=== PATIENT | male | born 1945 | race American Indian/Alaskan Native ===

== ENCOUNTER 2016-09-16 18:34 | Inpatient (IN) | payer MEDICARE ==
[2016-09-16 19:45] LABS: Basophils % (Auto) 0.9 % (0.0-1.8); Eosinophils % (Auto) 2.5 % (0.0-4.3); Hematocrit 39.3 % (35.5-45.6); Hemoglobin 13.4 gm/dl (11.8-15.2); Mean Corpuscular HGB Conc 34 % (32-34); Mean Corpuscular Hemoglobin 30 pg (28-32); Mean Corpuscular Volume 87 fl (84-94); Platelet Count 214 K/mm3 (140-440); Red Blood Count 4.53 M/mm3 (3.65-5.03); Red Cell Distribution Width 15.9 % (13.2-15.2)
[2016-09-16 20:00] LABS: Anion Gap 20 mmol/L; Blood Urea Nitrogen 15 mg/dL (9-20); Calcium 9.2 mg/dL (8.4-10.2); Carbon Dioxide 25 mmol/L (22-30); Chloride 102.6 mmol/L (98-107); Glucose 126 mg/dL (75-100); Potassium 3.3 mmol/L (3.6-5.0); Sodium 144 mmol/L (137-145)
--- NOTE | 2016-09-16 20:11 | Emergency Department Report ---
HPI - General Chief Complaint: Extremity Problem,Nontraumatic Time Seen by Provider: 09/16/16 19:31 - HPI HPI: Patient is a 71-year-old black male who states that this morning around 10 AM he started having some left-sided weakness, pain. Patient is able to lift up his left arm but stated that it is difficult to grab objects. Patient with a history of high blood pressure, complains also of a headache, pressure like, ED Past Medical Hx - Past Medical History Previous Medical History?: Yes Hx Hypertension: Yes Hx Heart Attack/AMI: No Hx Congestive Heart Failure: Yes Hx Diabetes: No Hx Deep Vein Thrombosis: No - Surgical History Past Surgical History?: Yes Hx Coronary Stent: No Hx Pacemaker: Yes Hx Internal Defibrillator: Yes Additional Surgical History: denies - Family History Family history: hypertension - Social History Smoking Status: Former Smoker Substance Use Type: None - Medications Home Medications: Home Medications Medication Instructions Recorded Confirmed Last Taken Type Aspirin [Aspirin BABY CHEW TAB] 81 mg PO QDAY 12/09/15 09/16/16 12/08/15 History Bumetanide [Bumex] 1 mg PO TID 12/09/15 09/16/16 12/08/15 History Carvedilol [Coreg] 25 mg PO BID 12/09/15 09/16/16 12/08/15 History ISOSORBIDE MONOnitrate [Imdur ER] 60 mg PO QDAY 12/09/15 09/16/16 12/08/15 History Ondansetron [Zofran TAB] 4 mg PO Q8HR PRN #14 tablet 12/09/15 09/16/16 Unknown Rx Pravastatin Sodium [Pravastatin] 20 mg PO QHS 12/09/15 09/16/16 12/08/15 History Tamsulosin [Flomax] 0.4 mg PO QDAY 12/09/15 09/16/16 12/08/15 History amLODIPine [Norvasc] 5 mg PO DAILY 12/09/15 09/16/16 12/08/15 History hydrALAZINE [Apresoline TAB] 100 mg PO TID 12/09/15 09/16/16 12/08/15 History ED Review of Systems ROS: Stated complaint: FALL/LEFT ARM WEAKNESS Other details as noted in HPI Comment: All other systems reviewed and negative Constitutional: no symptoms reported Neurological: weakness Physical Exam - Physical Exam Vital Signs: Vital Signs 09/16/16 09/16/16 19:05 19:31 Temperature 98 F Pulse Rate 70 Respiratory 18 Rate Blood Pressure 172/84 [Right] O2 Sat by Pulse 98 Oximetry Physical Exam: General Adult Exam GENERAL APPEARANCE: Well developed, well nourished, alert and cooperative, and appears to be in no acute distress. HEAD: normocephalic. EYES: PERRL, EOMI. Fundi normal, vision is grossly intact. EARS: External auditory canals and tympanic membranes clear, hearing grossly intact. NOSE: No nasal discharge. THROAT: Oral cavity and pharynx normal. No inflammation, swelling, exudate, or lesions. Teeth and gingiva in good general condition. NECK: Neck supple, non-tender without lymphadenopathy, masses or thyromegaly. CARDIAC: Normal S1 and S2. No S3, S4 or murmurs. Rhythm is regular. There is no peripheral edema, cyanosis or pallor. Extremities are warm and well perfused. Capillary refill is less than 2 seconds. No carotid bruits. LUNGS: Clear to auscultation and percussion without rales, rhonchi, wheezing or diminished breath sounds. ABDOMEN: Positive bowel sounds. Soft, nondistended, nontender. No guarding or rebound. No masses. MUSKULOSKELETAL: Adequately aligned spine. ROM intact spine and extremities. No joint erythema or tenderness. Normal muscular development. Normal gait. BACK: Examination of the spine reveals normal gait and posture, no spinal deformity, symmetry of spinal muscles, without tenderness, decreased range of motion or muscular spasm. EXTREMITIES: No significant deformity or joint abnormality. No edema. Peripheral pulses intact. No varicosities. LOWER EXTREMITY: Examination of both feet reveals all toes to be normal in size and symmetry, normal range of motion, normal sensation with distal capillary filling of less than 2 seconds without tenderness, swelling, discoloration, nodules, weakness or deformity; examination of both ankles, knees, legs, and hips reveals normal range of motion, normal sensation without tenderness, swelling, discoloration, crepitus, weakness or deformity. NEUROLOGICAL: CN II-XII intact. left sided 3/5 strength PSYCHIATRIC: The mental examination revealed the patient was oriented to person , place, and time. The patient was able to demonstrate good judgement and reason , without hallucinations, abnormal affect or abnormal behaviors during the examination. Patient is not suicidal. ED Course Vital Signs 09/16/16 09/16/16 19:05 19:31 Temperature 98 F Pulse Rate 70 Respiratory 18 Rate Blood Pressure 172/84 [Right] O2 Sat by Pulse 98 Oximetry ED Medical Decision Making - Lab Data Result diagrams: 09/16/16 19:27 09/16/16 19:27 Critical care attestation.: If time is entered above; I have spent that time in minutes in the direct care of this critically ill patient, excluding procedure time. ED Disposition Clinical Impression: Left-sided weakness Disposition: DC-09 OP ADMIT IP TO THIS HOSP Is pt being admited?: Yes Does the pt Need Aspirin: Yes Condition: Stable Referrals: PRIMARY CARE, [Primary Care Provider] - 3-5 Days
[2016-09-16] MEDS ORDERED: MORPHINE ONE (20:12)
--- NOTE | 2016-09-16 20:12 | Cat Scan Report ---
FINAL REPORT EXAM: CT HEAD/BRAIN WO CON HISTORY: left sided weakness TECHNIQUE: Noncontrast CT axial images of the brain. PRIORS: None. FINDINGS: No parenchymal mass, mass effect, hemorrhage, midline shift or hydrocephalus. No evidence of acute cortical infarct. No abnormal, extra-axial fluid or air collection. Mild, patchy low density in the periventricular and subcortical white matter, primarily in the right frontal region is nonspecific, but may relate to chronic small vessel ischemic change. Probable tiny, old lacunar infarct changes in the right basal ganglia. Age-related volume loss. Osseous calvarium grossly intact. IMPRESSION: 1. Chronic ischemic and atrophic changes suspected. Please note that MRI is a far more sensitive modality in the evaluation of acute cerebral ischemia, and followup may be warranted. 2. No other acute intracranial findings.
[2016-09-16] MEDS ORDERED: ZOFRAN ONE (20:13)
[2016-09-16] MEDS ORDERED: ZOFRAN IV ONE (20:15)
[2016-09-16] MEDS ORDERED: MORPHINE IV ONE (20:15)
[2016-09-17] MEDS ORDERED: ASPIRIN ONE (01:34)
[2016-09-17] MEDS: ASPIRIN PO SCH ×2 (01:41→10:55)
--- NOTE | 2016-09-17 03:00 | Admit Criteria Form ---
Admission Criteria Documentation: NEUROLOGY GRG Clinical Indications for Admission to Inpatient Care (Place ' X' for any and all applicable criteria): Hospital admission is needed for appropriate care of the patient because of 1 or more of the following: [ ]I. Encephalitis [ ]II. Severe PATIENT SERVICES COORDINATOR infections indicated by 1 or more of the following(1)(2)(3) : [ ]a) Intracranial abscess [ ]b) Spinal abscess or myelitis [ ]c) Tuberculous or other nonbacterial, nonviral PATIENT SERVICES COORDINATOR infection(8) [ ]III. Vasculitis and 1 or more of the following(14)(15): []a) Altered mental status that is severe or persistent or other acute neurologic change []b) Psychosis []c) Seizure [ ]IV. Status epilepticus or repetitive seizures not controlled with emergent treatment [A] (7)(8) [ ]V. Altered mental status that is severe or persistent [ ]. Transient alteration in consciousness with high-risk etiology; examples include (12)(13): [ ]a) Cardiovascular source [ ]b) Cataplexy [ ]VII. Cerebral aneurysm requiring ANY ONE of the following(14): [ ]a) IV antihypertensives or vasoactive agents [ ]b) Sedation and analgesia for suspected leak [ ]c) Need for external ventricular drainage and cerebral perfusion pressure monitoring [ ]d) Emergent evaluation to determine need for surgical clipping or endovascular coiling by interventional radiology. If surgery is required ( Also use Craniotomy, Supratentorial, for Surgery of Bleeding Intracranial Aneurysm (for bleeding aneurysm) or Craniotomy, Supratentorial (for nonbleeding aneurysm) as appropriate. [X ]VIII. New-onset severe neurologic symptom requiring inpatient care indicated by ANY ONE of the following: [ ]a) Aphasia(15) [ ]b) Weakness (grade 3 or less) [ ]c) Paralysis (eg, hemiplegia) [ ]d) Spasticity(16) [ ]e) Dystonia [ ]e) Ataxia(17) [ ]f) Amnesia(18) [ ]g) Involuntary movements(19) [ ]h) Vertigo [ ] Visual loss [X ]i) Other severe neurologic finding (eg, papilledema, mass effect on imaging, myoclonus not treatable at alternative level of care (eg, observation care) [ ]IX. Guillain-Brimfield syndrome(20) [ ]X. Myasthenia gravis crisis or inpatient monitoring need as indicated by 1 or more of the following(21): [ ]a) Intensive treatment (eg, course of plasmapheresis) with inadequate outpatient situation to monitor patients status [ ]b) Inadequate airway protection [ ]c) Respiratory insufficiency requiring intubation or inpatient. monitoring [ ]d) Progressive dysphagia with failure to thrive [ ]XI. Multiple sclerosis or other acute demyelinating disease requiring inpatient care as indicated by 1 or more of the following (22)(23): [ ]a) Acute severe deterioration requiring inpatient treatment (eg, IV steroids, plasmapheresis, close observation) [ ]b) Acute complication requiring inpatient care (eg, sepsis, severe decubitus, aspiration) [ ]XII.Parkinson disease requiring inpatient care (Also use Optimal Recovery Care Criteria or General Recovery Criteria as appropriate) indicated by 1 or more of the following(25): [ ]a) Infection (eg, aspiration pneumonia) not treatable at alternative level of care [ ]b Dehydration that is severe or persistent [ ]c) Life-threatening agitation or psychotic behavior not treatable on emergency, observation care, or alternative level (eg, residential) basis [ ]d) Severe medication withdrawal effects (eg, freezing, neuroleptic malignant syndrome) not responsive to emergency and observation care treatment ( as appropriate) [ ]e) Other severe manifestation not treatable at alternative level of care [ ]XII. Amyotrophic lateral sclerosis with inpatient care needs as indicated by ANY ONE of the following(26): [ ]a) Acute complications (eg, aspiration pneumonia, sepsis ) requiring inpatient care ( see other optimal Recovery Guideline as appropriate) [ ]b) Dehydration that is severe persistent AND artificial support desired [ ]c) Inadequate airway protection AND artificial support desired [ ]d) Severe ventilatory insufficiency AND artificial support desired [ ]XIII. Myasthenia gravis crisis or inpatient monitoring need as indicated by 1 or more of the following(21): [] a) Inadequate airway protection []b) Respiratory insufficiency requiring intubation or inpatient monitoring []c) Progressive dysphagia with failure to thrive []d) Intensive treatment (e.g., course of plasmapheresis) with inadequate outpatient situation to monitor patients status [ ]XIV. Multiple sclerosis or other acute demyelinating disease requiring inpatient care indicated by 1 or more of the following[C](36)(43)(44)(45)(46): []a) Acute severe deterioration requiring inpatient treatment (eg, IV steroids, plasmapheresis, close observation) []b) Acute complication requiring inpatient care (eg, sepsis, severe decubitus, aspiration) [ ]XV. Intracranial hypertension (e.g., pseudotumor cerebri) requiring inpatient care (e.g., acute visual loss, inadequate oral intake) (47)(48)(49) [ ]XVI. Parkinson disease requiring inpatient care (Also use Optimal Recovery Care Criteria or General Recovery Criteria as appropriate) indicated by 1 or more of the following(25): [] a) Infection (e.g., aspiration pneumonia) not treatable at alternative level of care []b) Volume depletion not responsive to emergency and observation care treatment (as appropriate) []c) Life-threatening agitation or psychotic behavior not treatable on emergency, observation care, or alternative level (e.g., residential) basis []d) Severe medication withdrawal effects (e.g., freezing, neuroleptic malignant syndrome) not responsive to emergency and observation care treatment (as appropriate) []e) Other severe manifestation not treatable at alternative level of care [ ]XVII. Amyotrophic lateral sclerosis with inpatient care needs as indicated by1 or more of the following(42): []a) Acute complications (eg, aspiration pneumonia, sepsis) requiring inpatient care (see other Optimal Recovery Guideline or General Recovery Guideline as appropriate) []b) Dehydration that is severe or persistent AND artificial support desired []c) Inadequate airway protection AND artificial support desired []d) Severe ventilatory insufficiency AND artificial support desired [ ]XVIII. Severe myopathy, neuropathy, or other neuromuscular disease indicated by 1 or more of the following(42)(52)(53)(54): []a ) New-onset severe diffuse weakness (eg, strength 3/5 or less) []b) Severe dysphagia []c) Dyspnea at rest or with minimal exertion (new) []d) Inadequate airway protection []e) Inadequate ventilation indicated by 1 or more of the following : i) Partial pressure of carbon dioxide greater than 44 mm Hg ( 5.9 kPa) (new) ii) Reduced peak expiratory flow rate (new) iii) Vital capacity less than 50% of predicted (less than 15 mL/kg) iv) Peak inspiratory force less negative than -30 cm H2O (- 2942 Pa) [ ]XVII.Complications of congenital or degenerative disease (eg, infection, seizures, dehydration, injury) not responsive to emergency and observation care treatment (as appropriate ) [C](16)(29)(30) [ ]XVIII.Suspected or confirmed nerve or muscle toxic injury, including ANY ONE of the following: [ ]a) Rhabdomyolysis(31) i) Acute renal failure ii) Dehydration that is severe or persistent iii) Altered mental status that is severe or persistent iv) Electrolyte abnormality that remains after emergency or observation level care ( as appropriate) [ ]b) Botulism(32) [ ]c) Other severe toxin-induced sign or symptom [ ]XIX. Neurologic trauma requiring inpatient treatment (medical) indicated by ANY ONE of the following(33)(34): [ ]a) Vital signs or neurologic signs more frequently than every 4 hours [ ]b) Hyperosmolar therapy [ ]c) Respiratory monitoring [ ]d) Intracranial pressure monitoring and treatment [ ]e) Stabilization and immobilization device placement (eg, braces, body jacket) [ ]f) Intubation & mechanical ventilation for airway protection or therapeutic hyperventilation [ ]g) Other treatment or monitoring needed that requires inpatient level of care [ ]XX.Complications of neurologic devices (eg, ventricular shunt, neurostimulator) requiring 1 or more of the following(35)(36): [ ]a) IV antibiotics with monitoring while awaiting culture results [ ]b) Monitoring for hydrocephalus [ ]XXI. Neurology condition symptom, or finding for which emergency and observation care have failed or are not considered appropriate. See General Criteria: Observation Care ISC, General Admission Criteria GRG, or Pediatric General Admission Criteria GRG guideline as appropriate. The original [facility] [employer] content created by [facility] [employer] has been revised. The portions of the content which have been revised are identified through the use of italic text or in bold, and [facility] has neither reviewed nor approved the modified material. All other unmodified content is copyright [facility] Please see references footnoted in the original [facility] edition 2016 Admission Criteria Met: Yes
[2016-09-17] MEDS ORDERED: APRESOLINE IV ONE (05:35)
--- NOTE | 2016-09-17 12:45 | History and Physical Report ---
History of Present Illness Date of admission: 09/17/16 01:05 Chief complaint: I feel weak, and i cant talk funny History of present illness: 71 YO Male with CHF, HTN, MO presents to ED for evaluation. Pt states that he began experiencing weakness to his left side at 10:00 hrs on the day of presentation. Pt unable to lift and hold a cup with his left hand/arm as well as a headache with pain rated at 8/10. Pt symptoms have worsened over the past 6 hours. Pt denies fever, chills, CP, palpitations, NVD, syncope, vertigo, trauma, BRBPR, productive cough, skin rash or recent ill contacts. Past History Past Medical History: heart failure, hypertension, other (obesity) Past Surgical History: Other (ICD/Pacemaker) Social history: single. denies: smoking, alcohol abuse, prescription drug abuse Family history: hypertension Medications and Allergies Allergies Allergy/AdvReac Type Severity Reaction Status Date / Time No Known Allergies Allergy Unverified 06/29/13 10:35 Home Medications Medication Instructions Recorded Confirmed Last Taken Type Aspirin [Aspirin BABY CHEW TAB] 81 mg PO QDAY 12/09/15 09/16/16 12/08/15 History Bumetanide [Bumex] 1 mg PO TID 12/09/15 09/16/16 12/08/15 History Carvedilol [Coreg] 25 mg PO BID 12/09/15 09/16/16 12/08/15 History ISOSORBIDE MONOnitrate [Imdur ER] 60 mg PO QDAY 12/09/15 09/16/16 12/08/15 History Ondansetron [Zofran TAB] 4 mg PO Q8HR PRN #14 tablet 12/09/15 09/16/16 Unknown Rx Pravastatin Sodium [Pravastatin] 20 mg PO QHS 12/09/15 09/16/16 12/08/15 History Tamsulosin [Flomax] 0.4 mg PO QDAY 12/09/15 09/16/16 12/08/15 History amLODIPine [Norvasc] 5 mg PO DAILY 12/09/15 09/16/16 12/08/15 History hydrALAZINE [Apresoline TAB] 100 mg PO TID 12/09/15 09/16/16 12/08/15 History Active Meds: Active Medications Aspirin (Aspirin) 325 mg PO QDAY DOMO Last Admin: 09/17/16 10:55 Dose: 325 mg Review of Systems All systems: negative Constitutional: no weight loss Ears, nose, mouth and throat: no ear pain Cardiovascular: no chest pain Respiratory: no cough Gastrointestinal: no abdominal pain Genitourinary Male: no dysuria Rectal: no pain Musculoskeletal: no neck stiffness Integumentary: no rash Neurological: parathesias, headaches, gait dysfunction, no head injury Psychiatric: no anxiety Endocrine: no cold intolerance Hematologic/Lymphatic: no easy bruising Allergic/Immunologic: no urticaria Exam - Constitutional Vitals: Temp Pulse Resp BP Pulse Ox 98.5 F 73 20 151/88 94 09/17/16 12:00 09/17/16 12:00 09/17/16 12:00 09/17/16 12:00 09/17/16 12:00 General appearance: Present: mild distress - EENT Eyes: Present: PERRL ENT: hearing intact, clear oral mucosa - Neck Neck: Present: supple, normal ROM - Respiratory Respiratory effort: normal Respiratory: bilateral: CTA - Cardiovascular Heart Sounds: Present: S1 & S2. Absent: rub, click - Extremities Extremities: pulses symmetrical, No edema Peripheral Pulses: within normal limits - Abdominal General gastrointestinal: Present: soft, non-tender, non-distended, normal bowel sounds Male genitourinary: Present: normal - Integumentary Integumentary: Present: clear, warm, dry - Musculoskeletal Musculoskeletal: left sided weakness - Psychiatric Psychiatric: appropriate mood/affect, intact judgment & insight - Neurologic Neurologic: focal deficits, no moves all extremities, no gait normal Results - Labs CBC & Chem 7: 09/16/16 19:27 09/16/16 19:27 Assessment and Plan - Patient Problems (1) CVA (cerebral vascular accident) Current Visit: Yes Status: Acute Qualifiers: CVA mechanism: C Precerebral and cerebral artery: middle cerebral artery Laterality of affected vessel: right Plan to address problem: Stroke Protocol: CT head, MRI/MRA brain, echo, carotid doppler, PT/OT/Speech evaluation, antiplatelet therapy. (2) Accelerated hypertension Current Visit: Yes Status: Acute Plan to address problem: Monitor BP q shift, permissive hypertension. goal systolic between 170-190 overnight. (3) Acute on chronic diastolic heart failure Current Visit: No Status: Acute Plan to address problem: fluid restriction, monitor uop q shift to attain negative fluid balance, afterload reduction, telemetry monitoring, medical management. (4) DVT prophylaxis Current Visit: No Status: Acute
[2016-09-17] MEDS ORDERED: SODIUM CHLORIDE FLUSH SYRINGE 10 ML IV PRN (12:46)
[2016-09-17] MEDS: ZOCOR PO SCH (21:24)
[2016-09-18] MEDS: MORPHINE IV PRN ×2 (03:33→14:20)
[2016-09-18] MEDS: ASPIRIN PO SCH (10:18)
--- NOTE | 2016-09-18 11:10 | Progress Note ---
Assessment and Plan Assessment and plan: --Acute CVA ischemic/left hemiparesis Aspirin and statin, physical therapy occupational therapy rehabilitation speech therapy Not a candidate for TPA --Malignant hypertension; Moderate control, permissive hypertension per stroke protocol, closely monitor --Dyslipidemia; continue statin --Acute on chronic diastolic congestive heart failure Continue current anti-failure medications, closely monitor input output Follow echocardiogram for left ventricular function ejection fraction --DVT prophylaxis; with Lovenox --DC planning per case management; possible subacute rehabilitation when medically stable History Interval history: Patient seen and evaluated in his room medical records reviewed Complaints of left upper extremity swelling and pain Admitted with acute CVA and workup is in progress Unable to get MRI due to permanent pacemaker, or tobacco oriented 3 not in acute distress Hospitalist Physical - Constitutional Vitals: Temp Pulse Resp BP Pulse Ox 98.1 F 73 20 185/95 97 09/18/16 08:00 09/18/16 08:00 09/18/16 08:00 09/18/16 08:00 09/18/16 08:00 General appearance: Present: no acute distress, obese - EENT Eyes: Present: PERRL, EOM intact - Neck Neck: Present: supple, normal ROM - Respiratory Respiratory effort: normal Respiratory: bilateral: diminished, negative: rales, rhonchi, wheezing - Cardiovascular Rhythm: regular Heart Sounds: Present: S1 & S2 - Extremities Extremities: no ischemia, No edema, abnormal (swelling left upper extremity mild tenderness) - Abdominal General gastrointestinal: soft, non-tender, non-distended, normal bowel sounds - Integumentary Integumentary: Present: clear, warm - Psychiatric Psychiatric: appropriate mood/affect, cooperative - Neurologic Neurologic: other (left-sided hemiparesis) Results - Labs CBC & Chem 7: 09/16/16 19:27 09/19/16 06:59 Labs: Laboratory Last Values WBC 8.0 K/mm3 (4.5-11.0) 09/16/16 19:27 RBC 4.53 M/mm3 (3.65-5.03) 09/16/16 19:27 Hgb 13.4 gm/dl (11.8-15.2) 09/16/16 19:27 Hct 39.3 % (35.5-45.6) 09/16/16 19:27 MCV 87 fl (84-94) 09/16/16 19:27 MCH 30 pg (28-32) 09/16/16 19:27 MCHC 34 % (32-34) 09/16/16 19:27 RDW 15.9 % (13.2-15.2) H 09/16/16 19:27 Plt Count 214 K/mm3 (140-440) 09/16/16 19:27 Lymph % (Auto) 12.9 % (13.4-35.0) L 09/16/16 19:27 [place] % (Auto) 7.7 % (0.0-7.3) H 09/16/16 19:27 Eos % (Auto) 2.5 % (0.0-4.3) 09/16/16 19:27 Baso % (Auto) 0.9 % (0.0-1.8) 09/16/16 19:27 Lymph # 1.0 K/mm3 (1.2-5.4) L 09/16/16 19:27 [place] # 0.6 K/mm3 (0.0-0.8) 09/16/16 19:27 Eos # 0.2 K/mm3 (0.0-0.4) 09/16/16 19:27 Baso # 0.1 K/mm3 (0.0-0.1) 09/16/16 19:27 Seg Neutrophils % 76.0 % (40.0-70.0) H 09/16/16 19:27 Seg Neutrophils # 6.1 K/mm3 (1.8-7.7) 09/16/16 19:27 Sodium 144 mmol/L (137-145) 09/16/16 19:27 Potassium 3.3 mmol/L (3.6-5.0) L 09/16/16 19:27 Chloride 102.6 mmol/L (98-107) 09/16/16 19:27 Carbon Dioxide 25 mmol/L (22-30) 09/16/16 19:27 Anion Gap 20 mmol/L 09/16/16 19:27 BUN 15 mg/dL (9-20) 09/16/16 19:27 Creatinine 1.0 mg/dL (0.8-1.5) 09/16/16 19:27 Estimated GFR > 60 ml/min 09/16/16 19:27 BUN/Creatinine Ratio 15.00 % 09/16/16 19:27 Glucose 126 mg/dL (75-100) H 09/16/16 19:27 Calcium 9.2 mg/dL (8.4-10.2) 09/16/16 19:27 Troponin T < 0.010 ng/mL (0.00-0.029) 09/17/16 00:30 Triglycerides 50 mg/dL (2-149) 09/18/16 06:21 Cholesterol 148 mg/dL (50-199) 09/18/16 06:21 LDL Cholesterol Direct 103 mg/dL (50-130) 09/18/16 06:21 HDL Cholesterol 35 mg/dL (40-59) L 09/18/16 06:21 Cholesterol/HDL Ratio 4.22 % 09/18/16 06:21
[2016-09-18] MEDS: FLOMAX PO SCH (18:17)
[2016-09-18] MEDS: APRESOLINE PO SCH (20:20)
[2016-09-18] MEDS: BUMEX PO SCH (20:20)
[2016-09-18] MEDS: COREG PO SCH (21:33)
[2016-09-18] MEDS: ZOCOR PO SCH (21:34)
[2016-09-18] MEDS: TYLENOL PO PRN (22:43)
[2016-09-19] MEDS: MORPHINE IV PRN (05:08)
[2016-09-19 07:59] LABS: Anion Gap 19 mmol/L; BUN/Creatinine Ratio 11.53; Blood Urea Nitrogen 15 mg/dL (9-20); Calcium 8.5 mg/dL (8.4-10.2); Carbon Dioxide 26 mmol/L (22-30); Chloride 100.4 mmol/L (98-107); Glucose 118 mg/dL (75-100); Potassium 3.2 mmol/L (3.6-5.0); Sodium 142 mmol/L (137-145)
--- NOTE | 2016-09-19 08:47 | XRay Report ---
PORTABLE CHEST INDICATION: Elevated temperature. COMPARISON: 12/09/2015 FINDINGS: Portable, frontal chest radiograph demonstrate stable cardiomediastinal silhouette/mild cardiomegaly and left sided pacemaker with dual chamber leads. Poorer inspiration with slightly crowded lung markings. No pleural effusions or CHF. EKG leads. Stable thoracic spondylosis. CONCLUSION: No significant interval change, as described. Thank you for the opportunity to participate in this patient's care.
[2016-09-19] MEDS: FLOMAX PO SCH (09:51)
[2016-09-19] MEDS: APRESOLINE PO SCH ×3 (09:51→20:30)
[2016-09-19] MEDS: ASPIRIN PO SCH (09:51)
[2016-09-19] MEDS: BUMEX PO SCH ×3 (09:51→20:30)
[2016-09-19] MEDS: IMDUR PO SCH (09:52)
[2016-09-19] MEDS: COREG PO SCH ×2 (09:52→22:44)
[2016-09-19] MEDS: NORVASC PO SCH (09:53)
[2016-09-19] MEDS: TYLENOL PO PRN (10:02)
--- NOTE | 2016-09-19 10:03 | Progress Note ---
Assessment and Plan Assessment and plan: --Hypokalemia; replenishment protocol and monitor levels --Acute CVA ischemic/left hemiparesis Aspirin and statin, physical therapy occupational therapy rehabilitation speech therapy Not a candidate for TPA, Physical therapy occupational therapy, rehabilitation, speech therapy Unable to get MRI secondary to pacemaker, pending neurology consultation --Malignant hypertension; Moderate control, permissive hypertension per stroke protocol, closely monitor --Dyslipidemia; continue statin --Acute on chronic diastolic congestive heart failure Continue current anti-failure medications, closely monitor input output --DVT prophylaxis; with Lovenox --DC planning per case management; possible subacute rehabilitation versus home with home health when medically stable Plan of care discussed with the patient, nurse and the case management History Interval history: Patient seen and evaluated this morning medical records reviewed No new events reported by the nursing staff Patient feels slightly better, alert awake oriented 3 not in acute distress Hospitalist Physical - Constitutional Vitals: Temp Pulse Resp BP Pulse Ox 98.9 F 70 22 178/88 99 09/19/16 04:30 09/19/16 09:53 09/19/16 05:08 09/19/16 09:53 09/19/16 04:30 General appearance: Present: no acute distress, well-nourished, obese (morbidly obese) - EENT Eyes: Present: PERRL, EOM intact - Neck Neck: Present: supple, normal ROM - Respiratory Respiratory effort: normal - Cardiovascular Rhythm: regular Heart Sounds: Present: S1 & S2 - Extremities Extremities: no ischemia, No edema Peripheral Pulses: within normal limits - Abdominal General gastrointestinal: soft, non-tender, non-distended, normal bowel sounds - Integumentary Integumentary: Present: clear, warm - Psychiatric Psychiatric: appropriate mood/affect, cooperative - Neurologic Neurologic: other (left-sided hemiparesis) Results - Labs CBC & Chem 7: 09/16/16 19:27 09/19/16 06:59 Labs: Laboratory Last Values WBC 8.0 K/mm3 (4.5-11.0) 09/16/16 19:27 RBC 4.53 M/mm3 (3.65-5.03) 09/16/16 19:27 Hgb 13.4 gm/dl (11.8-15.2) 09/16/16 19:27 Hct 39.3 % (35.5-45.6) 09/16/16 19:27 MCV 87 fl (84-94) 09/16/16 19: MCH 30 pg (28-32) 09/16/16 19:27 MCHC 34 % (32-34) 09/16/16 19:27 RDW 15.9 % (13.2-15.2) H 09/16/16 19:27 Plt Count 214 K/mm3 (140-440) 09/16/16 19:27 Lymph % (Auto) 12.9 % (13.4-35.0) L 09/16/16 19:27 [place] % (Auto) 7.7 % (0.0-7.3) H 09/16/16 19:27 Eos % (Auto) 2.5 % (0.0-4.3) 09/16/16 19:27 Baso % (Auto) 0.9 % (0.0-1.8) 09/16/16 19:27 Lymph # 1.0 K/mm3 (1.2-5.4) L 09/16/16 19:27 [place] # 0.6 K/mm3 (0.0-0.8) 09/16/16 19:27 Eos # 0.2 K/mm3 (0.0-0.4) 09/16/16 19:27 Baso # 0.1 K/mm3 (0.0-0.1) 09/16/16 19:27 Seg Neutrophils % 76.0 % (40.0-70.0) H 09/16/16 19:27 Seg Neutrophils # 6.1 K/mm3 (1.8-7.7) 09/16/16 19:27 Sodium 142 mmol/L (137-145) 09/19/16 06:59 Potassium 3.2 mmol/L (3.6-5.0) L 09/19/16 06:59 Chloride 100.4 mmol/L (98-107) 09/19/16 06:59 Carbon Dioxide 26 mmol/L (22-30) 09/19/16 06:59 Anion Gap 19 mmol/L 09/19/16 06:59 BUN 15 mg/dL (9-20) 09/19/16 06:59 Creatinine 1.3 mg/dL (0.8-1.5) 09/19/16 06:59 Estimated GFR > 60 ml/min 09/19/16 06:59 BUN/Creatinine Ratio 11.53 % 09/19/16 06:59 Glucose 118 mg/dL (75-100) H 09/19/16 06:59 Calcium 8.5 mg/dL (8.4-10.2) 09/19/16 06:59 Magnesium 1.90 mg/dL (1.7-2.3) 09/19/16 06:59 Troponin T < 0.010 ng/mL (0.00-0.029) 09/17/16 00:30 Triglycerides 50 mg/dL (2-149) 09/18/16 06:21 Cholesterol 148 mg/dL (50-199) 09/18/16 06:21 LDL Cholesterol Direct 103 mg/dL (50-130) 09/18/16 06:21 HDL Cholesterol 35 mg/dL (40-59) L 09/18/16 06:21 Cholesterol/HDL Ratio 4.22 % 09/18/16 06:21
--- NOTE | 2016-09-19 10:43 | Vascular Lab Report ---
LEFT UPPER EXTREMITY VENOUS DUPLEX: REASON FOR EXAM: Pain of the left upper extremity COMMENTS ON THE LEFT: All arm veins visualized are freely compressible without evidence of internal echogenicity. The subclavian and internal jugular veins are free of thrombus. Flow is spontaneous and phasic throughout. COMMENTS ON THE RIGHT: The subclavian and internal jugular veins are free of thrombus. IMPRESSION: No evidence of acute or chronic deep venous thrombosis in the left upper extremity.
--- NOTE | 2016-09-19 10:43 | Vascular Lab Report ---
Left Lower Extremity Venous Duplex Study: Reason for Exam: Pain of the left lower extremity. Comments on the Right: A limited duplex study was done of the proximal veins of the right lower extremity. All veins visualized are freely compressible without evidence of internal echogenicity. Flow is spontaneous and phasic throughout. No evidence of acute or chronic thrombus is seen in any of the vessels visualized. Comments on the Left: All veins visualized are freely compressible without evidence of internal echogenicity. Flow is spontaneous and phasic throughout. No evidence of acute or chronic thrombus is seen in any of the vessels visualized. Impression: No evidence of acute or chronic deep venous thrombosis in the left lower extremity.
[2016-09-19] MEDS ORDERED: K-DUR PO ONE (11:00)
[2016-09-19] MEDS: PROCARDIA XL PO SCH ×2 (14:44→22:45)
--- NOTE | 2016-09-19 16:59 | Consultation ---
History of Present Illness - Reason for Consult Consult date: 09/19/16 stroke - History of Present Illness patient seen and assessed, the patient is profoundly weak on the left side and the CT shows multiple areas of deep white matter ischemia some look acute frontal deep white matter we can not get MRI due to the fact he has pacemaker I have dictated a full note Thanks Past History Past Medical History: heart failure, hypertension, other (obesity) Past Surgical History: Other (ICD/Pacemaker) Social history: single. denies: smoking, alcohol abuse, prescription drug abuse Family history: hypertension Medications and Allergies Allergies Allergy/AdvReac Type Severity Reaction Status Date / Time No Known Allergies Allergy Unverified 06/29/13 10:35 Home Medications Medication Instructions Recorded Confirmed Last Taken Type Aspirin [Aspirin BABY CHEW TAB] 81 mg PO QDAY 12/09/15 09/16/16 12/08/15 History Bumetanide [Bumex] 1 mg PO TID 12/09/15 09/16/16 12/08/15 History Carvedilol [Coreg] 25 mg PO BID 12/09/15 09/16/16 12/08/15 History ISOSORBIDE MONOnitrate [Imdur ER] 60 mg PO QDAY 12/09/15 09/16/16 12/08/15 History Ondansetron [Zofran TAB] 4 mg PO Q8HR PRN #14 tablet 12/09/15 09/16/16 Unknown Rx Pravastatin Sodium [Pravastatin] 20 mg PO QHS 12/09/15 09/16/16 12/08/15 History Tamsulosin [Flomax] 0.4 mg PO QDAY 12/09/15 09/16/16 12/08/15 History amLODIPine [Norvasc] 5 mg PO DAILY 12/09/15 09/16/16 12/08/15 History hydrALAZINE [Apresoline TAB] 100 mg PO TID 12/09/15 09/16/16 12/08/15 History Active Meds: Active Medications Acetaminophen (Tylenol) 650 mg PO Q6H PRN PRN Reason: Pain, Mild (1-3) Last Admin: 09/19/16 10:02 Dose: 650 mg Amlodipine Besylate (Norvasc) 5 mg PO DAILY [facility] Last Admin: 09/19/16 09:53 Dose: 5 mg Aspirin (Aspirin) 325 mg PO QDAY [facility] Last Admin: 09/19/16 09:51 Dose: 325 mg Bumetanide (Bumex) 1 mg PO TID [facility] Last Admin: 09/19/16 14:43 Dose: 1 mg Carvedilol (Coreg) 25 mg PO BID [facility] Last Admin: 09/19/16 09:52 Dose: 25 mg Hydralazine HCl (Apresoline) 100 mg PO TID [facility] Last Admin: 09/19/16 14:44 Dose: 100 mg Isosorbide Mononitrate (Imdur) 60 mg PO QDAY [facility] Last Admin: 09/19/16 09:52 Dose: 60 mg Nifedipine (Procardia Xl) 30 mg PO Q12HR [facility] Last Admin: 09/19/16 14:44 Dose: 30 mg Oxycodone/Acetaminophen (Percocet 5/325) 1 tab PO Q6H PRN PRN Reason: Pain, Moderate (4-6) Simvastatin (Zocor) 20 mg PO QHS [facility] Last Admin: 09/18/16 21:34 Dose: 20 mg Sodium Chloride (Sodium Chloride Flush Syringe 10 Ml) 10 ml IV PRN PRN PRN Reason: LINE FLUSH Tamsulosin HCl (Flomax) 0.4 mg PO QDAY [facility] Last Admin: 09/19/16 09:51 Dose: 0.4 mg Exam - Constitutional Vitals: Temp Pulse Resp BP Pulse Ox 99.2 F 72 20 156/73 100 09/19/16 10:25 09/19/16 10:25 09/19/16 11:02 09/19/16 10:25 09/19/16 10:25 Results - Labs CBC & Chem 7: 09/16/16 19:27 09/19/16 06:59 Labs: Abnormal lab results 09/19/16 Range/Units 06:59 Potassium 3.2 L (3.6-5.0) mmol/L Glucose 118 H (75-100) mg/dL
[2016-09-19] MEDS: ZOCOR PO SCH (22:45)
--- NOTE | 2016-09-20 02:03 | Consultation ---
HISTORY OF PRESENT ILLNESS: This is a 71-year-old black male with a prior history of hypertension, obesity, congestive heart failure who presents to Emergency Room after a vague onset about the day of presentation of experiencing left arm, left leg weakness. He had a prior history of having pacemaker insertion and ICD device. He also has prior history of heart failure, hypertension, obesity. Symptoms have worsened over the previous 6 hours after presentation. He denied any allergies. REVIEW OF SYSTEMS: Was essentially unremarkable except for weakness of his left side. PHYSICAL EXAMINATION: VITAL SIGNS: The patient's blood pressure was 151/88, respirations 20, pulse rate 73, temperature was 98.5. NEUROLOGIC: He was fairly alert, talks normal, sitting on the bedside chair. At the time the patient is evaluated, he has a dense left hemiparesis, denial of left hemiparesis. A sensory loss noted of the left side. Cranial nerves 2-12 are intact with the exception of left central facial weakness. He has right gaze preference, left visual field cut. He has NIH stroke scale of 7 with a visual field cut, hemiparesis, jonah-motor or sensory deficit and denial of weakness. No tremors or asterixis. Motor tone is weak profoundly on the left side. IMPRESSION: This patient has multiple strokes in the right hemisphere, lacunar, microvascular, no hemorrhage. He cannot get an MRI because he has an implantable device, pacemaker, ICD. The patient should be treated with medical therapy, aspirin, statin. I would recommend getting an echocardiogram on the patient. JOB# [id number] RADHA/RAISA
[2016-09-20] MEDS: APRESOLINE PO SCH ×3 (10:11→20:45)
[2016-09-20] MEDS: BUMEX PO SCH ×3 (10:11→20:45)
[2016-09-20] MEDS: NORVASC PO SCH (10:12)
[2016-09-20] MEDS: FLOMAX PO SCH (10:12)
[2016-09-20] MEDS: ASPIRIN PO SCH (10:12)
[2016-09-20] MEDS: IMDUR PO SCH (10:13)
[2016-09-20] MEDS: COREG PO SCH ×2 (10:14→21:32)
[2016-09-20] MEDS: PROCARDIA XL PO SCH ×2 (10:17→21:32)
--- NOTE | 2016-09-20 13:42 | Consultation ---
History of Present Illness - Reason for Consult Consult date: 09/20/16 STROKE - History of Present Illness HE IS MORE ALERT TODAY THE LEFT SIDED WEAKNESS IS BETTER HE CAN RAISE HIS ARM NOW THIS IS DRAMATIC IMPROVEMENT AWAIT echo REPORT Past History Past Medical History: heart failure, hypertension, other (obesity) Past Surgical History: Other (ICD/Pacemaker) Social history: single. denies: smoking, alcohol abuse, prescription drug abuse Family history: hypertension Medications and Allergies Allergies Allergy/AdvReac Type Severity Reaction Status Date / Time No Known Allergies Allergy Unverified 06/29/13 10:35 Home Medications Medication Instructions Recorded Confirmed Last Taken Type Aspirin [Aspirin BABY CHEW TAB] 81 mg PO QDAY 12/09/15 09/16/16 12/08/15 History Bumetanide [Bumex] 1 mg PO TID 12/09/15 09/16/16 12/08/15 History Carvedilol [Coreg] 25 mg PO BID 12/09/15 09/16/16 12/08/15 History ISOSORBIDE MONOnitrate [Imdur ER] 60 mg PO QDAY 12/09/15 09/16/16 12/08/15 History Ondansetron [Zofran TAB] 4 mg PO Q8HR PRN #14 tablet 12/09/15 09/16/16 Unknown Rx Pravastatin Sodium [Pravastatin] 20 mg PO QHS 12/09/15 09/16/16 12/08/15 History Tamsulosin [Flomax] 0.4 mg PO QDAY 12/09/15 09/16/16 12/08/15 History amLODIPine [Norvasc] 5 mg PO DAILY 12/09/15 09/16/16 12/08/15 History hydrALAZINE [Apresoline TAB] 100 mg PO TID 12/09/15 09/16/16 12/08/15 History Active Meds: Active Medications Acetaminophen (Tylenol) 650 mg PO Q6H PRN PRN Reason: Pain, Mild (1-3) Last Admin: 09/19/16 10:02 Dose: 650 mg Amlodipine Besylate (Norvasc) 5 mg PO DAILY [facility] Last Admin: 09/20/16 10:12 Dose: 5 mg Aspirin (Aspirin) 325 mg PO QDAY [facility] Last Admin: 09/20/16 10:12 Dose: 325 mg Bumetanide (Bumex) 1 mg PO TID [facility] Last Admin: 09/20/16 10:11 Dose: 1 mg Carvedilol (Coreg) 25 mg PO BID [facility] Last Admin: 09/20/16 10:14 Dose: 25 mg Hydralazine HCl (Apresoline) 100 mg PO TID [facility] Last Admin: 09/20/16 10:11 Dose: 100 mg Isosorbide Mononitrate (Imdur) 60 mg PO QDAY [facility] Last Admin: 09/20/16 10:13 Dose: 60 mg Nifedipine (Procardia Xl) 30 mg PO Q12HR [facility] Last Admin: 09/20/16 10:17 Dose: 30 mg Oxycodone/Acetaminophen (Percocet 5/325) 1 tab PO Q6H PRN PRN Reason: Pain, Moderate (4-6) Simvastatin (Zocor) 20 mg PO QHS [facility] Last Admin: 09/19/16 22:45 Dose: 20 mg Sodium Chloride (Sodium Chloride Flush Syringe 10 Ml) 10 ml IV PRN PRN PRN Reason: LINE FLUSH Tamsulosin HCl (Flomax) 0.4 mg PO QDAY [facility] Last Admin: 09/20/16 10:12 Dose: 0.4 mg Exam - Constitutional Vitals: Temp Pulse Resp BP Pulse Ox 98.5 F 66 20 115/63 96 09/20/16 11:55 09/20/16 11:55 09/20/16 11:55 09/20/16 11:55 09/20/16 11:55 Results - Labs CBC & Chem 7: 09/16/16 19:27 09/19/16 06:59
--- NOTE | 2016-09-20 17:28 | Progress Note ---
Assessment and Plan Assessment and plan: --Hypokalemia; replenishment protocol and monitor levels --Acute CVA ischemic/left hemiparesis Aspirin and statin, physical therapy occupational therapy rehabilitation speech therapy Not a candidate for TPA, , Unable to get MRI secondary to pacemaker, neurology consultation noted echocardiogram EF 55-60% --Malignant hypertension; Moderate control, permissive hypertension per stroke protocol, closely monitor --Dyslipidemia; continue statin --Acute on chronic diastolic congestive heart failure Continue current anti-failure medications, closely monitor input output --DVT prophylaxis; with Lovenox --DC planning per case management; possible subacute rehabilitation versus home with home health when medically stable Plan of care discussed with the patient, his daughter and the nurse . History Interval history: Patient seen and evaluated medical records reviewed Patient is more alert and awake, sitting on the chair, left upper extremity as well as lower extremity weakness significantly improved Able to raise the left arm and move the left leg Daughter is at the bedside, no other complaints Hospitalist Physical - Constitutional Vitals: Temp Pulse Resp BP Pulse Ox 98.5 F 66 20 115/63 96 09/20/16 11:55 09/20/16 11:55 09/20/16 11:55 09/20/16 11:55 09/20/16 11:55 General appearance: Present: no acute distress, well-nourished, obese (morbidly obese) - EENT Eyes: Present: PERRL, EOM intact - Neck Neck: Present: supple, normal ROM - Respiratory Respiratory effort: normal Respiratory: bilateral: diminished, negative: rales, rhonchi, wheezing - Cardiovascular Rhythm: regular Heart Sounds: Present: S1 & S2 - Extremities Extremities: no ischemia, pulses intact, No edema - Abdominal General gastrointestinal: soft, non-tender, non-distended, normal bowel sounds - Integumentary Integumentary: Present: clear, warm - Psychiatric Psychiatric: appropriate mood/affect, cooperative - Neurologic Neurologic: other (left-sided hemiparesis) Results - Labs CBC & Chem 7: 09/16/16 19:27 09/19/16 06:59 Labs: Laboratory Last Values WBC 8.0 K/mm3 (4.5-11.0) 09/16/16 19:27 RBC 4.53 M/mm3 (3.65-5.03) 09/16/16 19:27 Hgb 13.4 gm/dl (11.8-15.2) 09/16/16 19:27 Hct 39.3 % (35.5-45.6) 09/16/16 19:27 MCV 87 fl (84-94) 09/16/16 19:27 MCH 30 pg (28-32) 09/16/16 19:27 MCHC 34 % (32-34) 09/16/16 19:27 RDW 15.9 % (13.2-15.2) H 09/16/16 19:27 Plt Count 214 K/mm3 (140-440) 09/16/16 19:27 Lymph % (Auto) 12.9 % (13.4-35.0) L 09/16/16 19:27 [place] % (Auto) 7.7 % (0.0-7.3) H 09/16/16 19:27 Eos % (Auto) 2.5 % (0.0-4.3) 09/16/16 19:27 Baso % (Auto) 0.9 % (0.0-1.8) 09/16/16 19:27 Lymph # 1.0 K/mm3 (1.2-5.4) L 09/16/16 19:27 [place] # 0.6 K/mm3 (0.0-0.8) 09/16/16 19:27 Eos # 0.2 K/mm3 (0.0-0.4) 09/16/16 19:27 Baso # 0.1 K/mm3 (0.0-0.1) 09/16/16 19:27 Seg Neutrophils % 76.0 % (40.0-70.0) H 09/16/16 19:27 Seg Neutrophils # 6.1 K/mm3 (1.8-7.7) 09/16/16 19:27 Sodium 142 mmol/L (137-145) 09/19/16 06:59 Potassium 3.2 mmol/L (3.6-5.0) L 09/19/16 06:59 Chloride 100.4 mmol/L (98-107) 09/19/16 06:59 Carbon Dioxide 26 mmol/L (22-30) 09/19/16 06:59 Anion Gap 19 mmol/L 09/19/16 06:59 BUN 15 mg/dL (9-20) 09/19/16 06:59 Creatinine 1.3 mg/dL (0.8-1.5) 09/19/16 06:59 Estimated GFR > 60 ml/min 09/19/16 06:59 BUN/Creatinine Ratio 11.53 % 09/19/16 06:59 Glucose 118 mg/dL (75-100) H 09/19/16 06:59 Calcium 8.5 mg/dL (8.4-10.2) 09/19/16 06:59 Magnesium 1.90 mg/dL (1.7-2.3) 09/19/16 06:59 Troponin T < 0.010 ng/mL (0.00-0.029) 09/17/16 00:30 Triglycerides 50 mg/dL (2-149) 09/18/16 06:21 Cholesterol 148 mg/dL (50-199) 09/18/16 06:21 LDL Cholesterol Direct 103 mg/dL (50-130) 09/18/16 06:21 HDL Cholesterol 35 mg/dL (40-59) L 09/18/16 06:21 Cholesterol/HDL Ratio 4.22 % 09/18/16 06:21
[2016-09-20] MEDS: ZOCOR PO SCH (21:31)
[2016-09-21 08:25] LABS: Anion Gap 17 mmol/L; BUN/Creatinine Ratio 19.28; Blood Urea Nitrogen 27 mg/dL (9-20); Calcium 8.3 mg/dL (8.4-10.2); Carbon Dioxide 27 mmol/L (22-30); Chloride 104.5 mmol/L (98-107); Glucose 113 mg/dL (75-100); Potassium 3.5 mmol/L (3.6-5.0); Sodium 145 mmol/L (137-145)
[2016-09-21] MEDS ORDERED: K-DUR PO ONE ×2 (09:00→19:00)
[2016-09-21] MEDS: IMDUR PO SCH (13:32)
[2016-09-21] MEDS: PROCARDIA XL PO SCH ×2 (13:33→21:32)
[2016-09-21] MEDS: ASPIRIN PO SCH (13:33)
[2016-09-21] MEDS: APRESOLINE PO SCH ×3 (13:34→21:32)
[2016-09-21] MEDS: COREG PO SCH ×2 (13:34→23:15)
[2016-09-21] MEDS: NORVASC PO SCH (13:34)
--- NOTE | 2016-09-21 17:42 | Progress Note ---
Assessment and Plan Assessment and plan: --Hypokalemia; replenishment protocol and monitor levels --Acute CVA ischemic/left hemiparesis Aspirin and statin, physical therapy occupational therapy rehabilitation speech therapy Not a candidate for TPA, , Unable to get MRI secondary to pacemaker, neurology following echocardiogram EF 55-60%, physical therapy occupational therapy Possible discharge home with home PT in 1-2 days --Malignant hypertension; Moderate control, permissive hypertension per stroke protocol, closely monitor --Dyslipidemia; continue statin --Acute on chronic diastolic congestive heart failure Continue current anti-failure medications, closely monitor input output --DVT prophylaxis; with Lovenox --DC planning per case management; possible home with home health when medically stable Plan of care discussed with the patient, his daughter and the nurse . History Interval history: Patient seen and evaluated in his room No new events reported by the nursing staff Patient's left-sided weakness significantly improved, able to raise the hand [employer] Libr[employer] is slightly improved No new complaints Hospitalist Physical - Constitutional Vitals: Temp Pulse Resp BP Pulse Ox 98.4 F 72 20 114/60 95 09/21/16 15:58 09/21/16 15:58 09/21/16 15:58 09/21/16 15:58 09/21/16 15:58 General appearance: Present: no acute distress, well-nourished, obese (morbidly obese) - EENT Eyes: Present: PERRL, EOM intact - Neck Neck: Present: supple, normal ROM - Respiratory Respiratory effort: normal Respiratory: bilateral: diminished, negative: rales, rhonchi, wheezing - Cardiovascular Rhythm: regular Heart Sounds: Present: S1 & S2 - Extremities Extremities: no ischemia, pulses intact, pulses symmetrical Peripheral Pulses: within normal limits - Abdominal General gastrointestinal: soft, non-tender, non-distended, normal bowel sounds - Integumentary Integumentary: Present: clear, warm - Psychiatric Psychiatric: appropriate mood/affect, cooperative - Neurologic Neurologic: other (left-sided weakness significantly improved) Results - Labs CBC & Chem 7: 09/16/16 19:27 09/21/16 07:39 Labs: Laboratory Last Values WBC 8.0 K/mm3 (4.5-11.0) 09/16/16 19:27 RBC 4.53 M/mm3 (3.65-5.03) 09/16/16 19:27 Hgb 13.4 gm/dl (11.8-15.2) 09/16/16 19:27 Hct 39.3 % (35.5-45.6) 09/16/16 19:27 MCV 87 fl (84-94) 09/16/16 19:27 MCH 30 pg (28-32) 09/16/16 19:27 MCHC 34 % (32-34) 09/16/16 19:27 RDW 15.9 % (13.2-15.2) H 09/16/16 19:27 Plt Count 214 K/mm3 (140-440) 09/16/16 19:27 Lymph % (Auto) 12.9 % (13.4-35.0) L 09/16/16 19:27 [place] % (Auto) 7.7 % (0.0-7.3) H 09/16/16 19:27 Eos % (Auto) 2.5 % (0.0-4.3) 09/16/16 19:27 Baso % (Auto) 0.9 % (0.0-1.8) 09/16/16 19:27 Lymph # 1.0 K/mm3 (1.2-5.4) L 09/16/16 19:27 [place] # 0.6 K/mm3 (0.0-0.8) 09/16/16 19:27 Eos # 0.2 K/mm3 (0.0-0.4) 09/16/16 19:27 Baso # 0.1 K/mm3 (0.0-0.1) 09/16/16 19:27 Seg Neutrophils % 76.0 % (40.0-70.0) H 09/16/16 19:27 Seg Neutrophils # 6.1 K/mm3 (1.8-7.7) 09/16/16 19:27 Sodium 145 mmol/L (137-145) 09/21/16 07:39 Potassium 3.5 mmol/L (3.6-5.0) L 09/21/16 07:39 Chloride 104.5 mmol/L (98-107) 09/21/16 07:39 Carbon Dioxide 27 mmol/L (22-30) 09/21/16 07:39 Anion Gap 17 mmol/L 09/21/16 07:39 BUN 27 mg/dL (9-20) H 09/21/16 07:39 Creatinine 1.4 mg/dL (0.8-1.5) 09/21/16 07:39 Estimated GFR > 60 ml/min 09/21/16 07:39 BUN/Creatinine Ratio 19.28 % 09/21/16 07:39 Glucose 113 mg/dL (75-100) H 09/21/16 07:39 Calcium 8.3 mg/dL (8.4-10.2) L 09/21/16 07:39 Magnesium 2.10 mg/dL (1.7-2.3) 09/21/16 07:39 Troponin T < 0.010 ng/mL (0.00-0.029) 09/17/16 00:30 Triglycerides 50 mg/dL (2-149) 09/18/16 06:21 Cholesterol 148 mg/dL (50-199) 09/18/16 06:21 LDL Cholesterol Direct 103 mg/dL (50-130) 09/18/16 06:21 HDL Cholesterol 35 mg/dL (40-59) L 09/18/16 06:21 Cholesterol/HDL Ratio 4.22 % 09/18/16 06:21
[2016-09-21] MEDS: BUMEX PO SCH ×3 (18:39→21:31)
[2016-09-21] MEDS: ZOCOR PO SCH (21:32)
[2016-09-21] MEDS: FLOMAX PO SCH (21:32)
[2016-09-22 07:44] LABS: Magnesium 2.1 mg/dL (1.7-2.3); Potassium 3.4 mmol/L (3.6-5.0)
--- NOTE | 2016-09-22 12:27 | Consultation ---
History of Present Illness - Reason for Consult Consult date: 09/22/16 stroke - History of Present Illness f/u in office plan discharge tomorrow stroke is better Past History Past Medical History: heart failure, hypertension, other (obesity) Past Surgical History: Other (ICD/Pacemaker) Social history: single. denies: smoking, alcohol abuse, prescription drug abuse Family history: hypertension Medications and Allergies Allergies Allergy/AdvReac Type Severity Reaction Status Date / Time No Known Allergies Allergy Unverified 06/29/13 10:35 Home Medications Medication Instructions Recorded Confirmed Last Taken Type Aspirin [Aspirin BABY CHEW TAB] 81 mg PO QDAY 12/09/15 09/16/16 12/08/15 History Bumetanide [Bumex] 1 mg PO TID 12/09/15 09/16/16 12/08/15 History Carvedilol [Coreg] 25 mg PO BID 12/09/15 09/16/16 12/08/15 History ISOSORBIDE MONOnitrate [Imdur ER] 60 mg PO QDAY 12/09/15 09/16/16 12/08/15 History Ondansetron [Zofran TAB] 4 mg PO Q8HR PRN #14 tablet 12/09/15 09/16/16 Unknown Rx Pravastatin Sodium [Pravastatin] 20 mg PO QHS 12/09/15 09/16/16 12/08/15 History Tamsulosin [Flomax] 0.4 mg PO QDAY 12/09/15 09/16/16 12/08/15 History amLODIPine [Norvasc] 5 mg PO DAILY 12/09/15 09/16/16 12/08/15 History hydrALAZINE [Apresoline TAB] 100 mg PO TID 12/09/15 09/16/16 12/08/15 History Active Meds: Active Medications Acetaminophen (Tylenol) 650 mg PO Q6H PRN PRN Reason: Pain, Mild (1-3) Last Admin: 09/19/16 10:02 Dose: 650 mg Amlodipine Besylate (Norvasc) 5 mg PO DAILY [facility] Last Admin: 09/21/16 13:34 Dose: 5 mg Aspirin (Aspirin) 325 mg PO QDAY [facility] Last Admin: 09/21/16 13:33 Dose: 325 mg Bumetanide (Bumex) 1 mg PO TID [facility] Last Admin: 09/21/16 21:31 Dose: 1 mg Carvedilol (Coreg) 25 mg PO BID [facility] Last Admin: 09/21/16 23:15 Dose: 25 mg Hydralazine HCl (Apresoline) 100 mg PO TID [facility] Last Admin: 09/21/16 21:32 Dose: 100 mg Isosorbide Mononitrate (Imdur) 60 mg PO QDAY [facility] Last Admin: 09/21/16 13:32 Dose: 60 mg Nifedipine (Procardia Xl) 30 mg PO Q12HR [facility] Last Admin: 09/21/16 21:32 Dose: 30 mg Oxycodone/Acetaminophen (Percocet 5/325) 1 tab PO Q6H PRN PRN Reason: Pain, Moderate (4-6) Simvastatin (Zocor) 20 mg PO QHS [facility] Last Admin: 09/21/16 21:32 Dose: 20 mg Sodium Chloride (Sodium Chloride Flush Syringe 10 Ml) 10 ml IV PRN PRN PRN Reason: LINE FLUSH Tamsulosin HCl (Flomax) 0.4 mg PO QHS [facility] Last Admin: 09/21/16 21:32 Dose: 0.4 mg Exam - Constitutional Vitals: Temp Pulse Resp BP Pulse Ox 98.4 F 62 20 146/72 99 09/22/16 08:00 09/22/16 08:00 09/22/16 08:00 09/22/16 08:00 09/22/16 08:00 Results - Labs CBC & Chem 7: 09/16/16 19:27 09/22/16 07:06 Labs: Abnormal lab results 09/22/16 Range/Units 07:06 Potassium 3.4 L (3.6-5.0) mmol/L
[2016-09-22] MEDS: BUMEX PO SCH ×3 (12:29→21:48)
[2016-09-22] MEDS: COREG PO SCH ×2 (12:30→22:16)
[2016-09-22] MEDS: PERCOCET 5/325 PO PRN ×2 (12:30→22:25)
[2016-09-22] MEDS: ASPIRIN PO SCH (12:31)
[2016-09-22] MEDS: NORVASC PO SCH (12:31)
[2016-09-22] MEDS: PROCARDIA XL PO SCH ×2 (12:32→22:16)
[2016-09-22] MEDS: APRESOLINE PO SCH ×3 (12:32→21:48)
[2016-09-22] MEDS: IMDUR PO SCH (12:32)
[2016-09-22] MEDS: K-DUR PO ONE ×2 (12:51→12:55)
[2016-09-22] MEDS ORDERED: K-DUR PO ONE (13:00)
--- NOTE | 2016-09-22 16:52 | Progress Note ---
Assessment and Plan Assessment and plan: --Fracture left ulna and radius/swelling left hand Continue antibiotics, elevate the limb, orthopedic consult --Hypokalemia; corrected --Acute CVA ischemic/left hemiparesis Aspirin and statin, physical therapy occupational therapy rehabilitation speech therapy Not a candidate for TPA, , Unable to get MRI secondary to pacemaker, neurology following echocardiogram EF 55-60%, physical therapy occupational therapy Possible discharge home with home PT in 1-2 days --Malignant hypertension; Well-controlled ,closely monitor --Dyslipidemia; continue statin --Acute on chronic diastolic congestive heart failure,EF 55-60% Continue current anti-failure medications, closely monitor input output --DVT prophylaxis; with Lovenox --DC planning per case management; possible home with home health when medically stable Plan of care discussed with the patient, his daughter and the nurse . History Interval history: Patient seen and evaluated in his room and medical records reviewed Complaints left hand swelling and pain CT hand and forearm show a fracture of the distal radius and ulna Consult orthopedic, elevate the limb and supportive care No other complaints, alert awake oriented 3, tolerating physical therapy Hospitalist Physical - Constitutional Vitals: Temp Pulse Resp BP Pulse Ox 98.4 F 73 20 146/72 99 09/22/16 08:00 09/22/16 12:32 09/22/16 08:00 09/22/16 08:00 09/22/16 08:00 General appearance: Present: no acute distress, well-nourished, obese (morbidly obese) - EENT Eyes: Present: PERRL, EOM intact - Neck Neck: Present: supple, normal ROM - Respiratory Respiratory effort: normal Respiratory: bilateral: diminished, negative: rales, rhonchi, wheezing - Cardiovascular Rhythm: regular Heart Sounds: Present: S1 & S2 - Extremities Extremities: no ischemia, No edema, abnormal (left hand and wrist swelling and tenderness) Peripheral Pulses: within normal limits - Abdominal General gastrointestinal: soft, non-tender, non-distended, normal bowel sounds - Integumentary Integumentary: Present: clear, warm - Psychiatric Psychiatric: appropriate mood/affect, cooperative - Neurologic Neurologic: other ( left-sided weakness) Results - Labs CBC & Chem 7: 09/23/16 05:19 09/23/16 05:19 Labs: Laboratory Last Values WBC 8.0 K/mm3 (4.5-11.0) 08/01/17 19:27 RBC 4.53 M/mm3 (3.65-5.03) 09/16/16 19:27 Hgb 13.4 gm/dl (11.8-15.2) 09/16/16 19:27 Hct 39.3 % (35.5-45.6) 09/16/16 19:27 MCV 87 fl (84-94) 09/16/16 19:27 MCH 30 pg (28-32) 09/16/16 19:27 MCHC 34 % (32-34) 09/16/16 19:27 RDW 15.9 % (13.2-15.2) H 09/16/16 19:27 Plt Count 214 K/mm3 (140-440) 09/16/16 19:27 Lymph % (Auto) 12.9 % (13.4-35.0) L 09/16/16 19:27 [place] % (Auto) 7.7 % (0.0-7.3) H 09/16/16 19:27 Eos % (Auto) 2.5 % (0.0-4.3) 09/16/16 19:27 Baso % (Auto) 0.9 % (0.0-1.8) 09/16/16 19:27 Lymph # 1.0 K/mm3 (1.2-5.4) L 09/16/16 19:27 [place]od # 0.6 K/mm3 (0.0-0.8) 09/16/16 19:27 Eos # 0.2 K/mm3 (0.0-0.4) 09/16/16 19:27 Baso # 0.1 K/mm3 (0.0-0.1) 09/16/16 19:27 Seg Neutrophils % 76.0 % (40.0-70.0) H 09/16/16 19:27 Seg Neutrophils # 6.1 K/mm3 (1.8-7.7) 09/16/16 19:27 Sodium 145 mmol/L (137-145) 09/21/16 07:39 Potassium 3.4 mmol/L (3.6-5.0) L 09/22/16 07:06 Chloride 104.5 mmol/L (98-107) 09/21/16 07:39 Carbon Dioxide 27 mmol/L (22-30) 09/21/16 07:39 Anion Gap 17 mmol/L 09/21/16 07:39 BUN 27 mg/dL (9-20) H 09/21/16 07:39 Creatinine 1.4 mg/dL (0.8-1.5) 09/21/16 07:39 Estimated GFR > 60 ml/min 09/21/16 07:39 BUN/Creatinine Ratio 19.28 % 09/21/16 07:39 Glucose 113 mg/dL (75-100) H 09/21/16 07:39 Calcium 8.3 mg/dL (8.4-10.2) L 09/21/16 07:39 Magnesium 2.10 mg/dL (1.7-2.3) 09/22/16 07:06 Troponin T < 0.010 ng/mL (0.00-0.029) 09/17/16 00:30 Triglycerides 50 mg/dL (2-149) 09/18/16 06:21 Cholesterol 148 mg/dL (50-199) 09/18/16 06:21 LDL Cholesterol Direct 103 mg/dL (50-130) 09/18/16 06:21 HDL Cholesterol 35 mg/dL (40-59) L 09/18/16 06:21 Cholesterol/HDL Ratio 4.22 % 09/18/16 06:21
--- NOTE | 2016-09-22 19:47 | Cat Scan Report ---
FINAL REPORT PROCEDURE: CT right upper extremity with contrast. TECHNIQUE: Computerized axial tomography was performed of the right upper extremity after the IV injection of iodinated nonionic contrast. HISTORY: Pain and swelling, cellulitis, question abscess. COMPARISON: No prior studies are available for comparison. FINDINGS: There is a comminuted fracture involving the distal epiphysis of the radius. There is 5.7 millimeters of anterior displacement and 5.0 millimeters of overriding of the main distal fragment. There is no significant angulation. There is also a transverse fracture through the ulnar styloid process. The surrounding muscles and fat are unremarkable. The vascular structures enhance normally. There are no fluid collections to suggest an abscess. IMPRESSION: Fractures of the distal radius and ulna as described.
[2016-09-22] MEDS: LEVAQUIN 750MG/150ML 750 MG/150 ML BAG IV SCH (22:16)
[2016-09-22] MEDS: CLEOCIN PO SCH (22:17)
[2016-09-22] MEDS: FLOMAX PO SCH (22:17)
[2016-09-22] MEDS: ZOCOR PO SCH (22:17)
[2016-09-22] MEDS: BENADRYL PO PRN (23:08)
[2016-09-23 06:03] LABS: Basophils % (Auto) 1.2 % (0.0-1.8); Eosinophils % (Auto) 10.7 % (0.0-4.3); Hematocrit 35.6 % (35.5-45.6); Hemoglobin 11.9 gm/dl (11.8-15.2); Mean Corpuscular HGB Conc 33 % (32-34); Mean Corpuscular Hemoglobin 30 pg (28-32); Mean Corpuscular Volume 88 fl (84-94); Platelet Count 226 K/mm3 (140-440); Red Blood Count 4.04 M/mm3 (3.65-5.03); Red Cell Distribution Width 15.8 % (13.2-15.2); White Blood Count 5.4 K/mm3 (4.5-11.0)
[2016-09-23 06:25] LABS: Anion Gap 18 mmol/L; BUN/Creatinine Ratio 20.83; Blood Urea Nitrogen 25 mg/dL (9-20); Calcium 8.8 mg/dL (8.4-10.2); Carbon Dioxide 26 mmol/L (22-30); Chloride 102.4 mmol/L (98-107); Glucose 107 mg/dL (75-100); Potassium 3.4 mmol/L (3.6-5.0); Sodium 143 mmol/L (137-145)
[2016-09-23] MEDS: APRESOLINE PO SCH ×2 (08:00→14:28)
[2016-09-23] MEDS: IMDUR PO SCH (10:52)
[2016-09-23] MEDS: CLEOCIN PO SCH ×4 (10:52→21:37)
[2016-09-23] MEDS: COREG PO SCH ×2 (10:52→21:36)
[2016-09-23] MEDS: ASPIRIN PO SCH (10:52)
[2016-09-23] MEDS: NORVASC PO SCH (10:53)
[2016-09-23] MEDS: PROCARDIA XL PO SCH (10:53)
[2016-09-23] MEDS: BENADRYL PO PRN ×2 (10:54→21:39)
[2016-09-23] MEDS: BUMEX PO SCH ×3 (10:55→21:41)
--- NOTE | 2016-09-23 16:05 | Progress Note ---
Assessment and Plan Assessment and plan: --Fracture left ulna and radius/swelling left hand Probably secondary to fall at home and he had acute CVA Pain Medications elevate the limb, orthopedic consult --Hypokalemia; corrected --Acute CVA ischemic/left hemiparesis Aspirin and statin, physical therapy occupational therapy rehabilitation speech therapy Not a candidate for TPA, , Unable to get MRI secondary to pacemaker, neurology following echocardiogram EF 55-60%, physical therapy occupational therapy Possible discharge home with home PT in 1-2 days --Malignant hypertension; Well-controlled ,closely monitor --Dyslipidemia; continue statin --Acute on chronic diastolic congestive heart failure,EF 55-60% Continue current anti-failure medications, closely monitor input output --DVT prophylaxis; with Lovenox --DC planning per case management; possible home with home health when medically stable Plan of care discussed with the patient, his daughter and the nurse . Follow-up orthopedic evaluation and recommendations Patient can be transferred out of telemetry to surgical floor History Interval history: Patient Seen and evaluated this morning medical records reviewed Patient has some itching after receiving vancomycin for his cellulitis Will discontinue vancomycin and start Levaquin Orthopedic has evaluated the patient Right hand swelling mild improvement Hospitalist Physical - Constitutional Vitals: Temp Pulse Resp BP Pulse Ox 98.0 F 72 20 101/65 97 09/23/16 12:00 09/23/16 13:41 09/23/16 12:00 09/23/16 12:00 09/23/16 12:00 General appearance: Present: no acute distress, well-nourished, obese (morbidly obese) - EENT Eyes: Present: PERRL, EOM intact - Neck Neck: Present: supple, normal ROM - Respiratory Respiratory effort: normal Respiratory: bilateral: diminished, negative: rales, rhonchi, wheezing - Cardiovascular Rhythm: regular Heart Sounds: Present: S1 & S2 - Extremities Extremities: no ischemia, No edema, abnormal (bilateral cellulitis lower extremities, chronic lymphedema, dressing in place) - Abdominal General gastrointestinal: soft, non-tender, non-distended, normal bowel sounds - Integumentary Integumentary: Present: clear, warm - Psychiatric Psychiatric: appropriate mood/affect, cooperative - Neurologic Neurologic: CNII-XII intact, other (left sided weakness significantly improved) Results - Labs CBC & Chem 7: 09/23/16 05:19 09/23/16 05:19 Labs: Laboratory Last Values WBC 5.4 K/mm3 (4.5-11.0) 09/23/16 05:19 RBC 4.04 M/mm3 (3.65-5.03) 09/23/16 05:19 Hgb 11.9 gm/dl (11.8-15.2) 09/23/16 05:19 Hct 35.6 % (35.5-45.6) 09/23/16 05:19 MCV 88 fl (84-94) 09/23/16 05:19 MCH 30 pg (28-32) 09/23/16 05:19 MCHC 33 % (32-34) 09/23/16 05:19 RDW 15.8 % (13.2-15.2) H 09/23/16 05:19 Plt Count 226 K/mm3 (140-440) 09/23/16 05:19 Lymph % (Auto) 19.9 % (13.4-35.0) 09/23/16 05:19 [place] % (Auto) 12.0 % (0.0-7.3) H 09/23/16 05:19 Eos % (Auto) 10.7 % (0.0-4.3) H 09/23/16 05:19 Baso % (Auto) 1.2 % (0.0-1.8) 09/23/16 05:19 Lymph # 1.1 K/mm3 (1.2-5.4) L 09/23/16 05:19 [place] # 0.6 K/mm3 (0.0-0.8) 09/23/16 05:19 Eos # 0.6 K/mm3 (0.0-0.4) H 09/23/16 05:19 Baso # 0.1 K/mm3 (0.0-0.1) 09/23/16 05:19 Seg Neutrophils % 56.2 % (40.0-70.0) 09/23/16 05:19 Seg Neutrophils # 3.0 K/mm3 (1.8-7.7) 09/23/16 05:19 Sodium 145 mmol/L (137-145) 09/21/16 07:39 Potassium 3.4 mmol/L (3.6-5.0) L 09/22/16 07:06 Chloride 104.5 mmol/L (98-107) 09/21/16 07:39 Carbon Dioxide 26 mmol/L (22-30) 09/23/16 05:19 Anion Gap 17 mmol/L 09/21/16 07:39 BUN 25 mg/dL (9-20) H 09/23/16 05:19 Creatinine 1.2 mg/dL (0.8-1.5) 09/23/16 05:19 Estimated GFR > 60 ml/min 09/23/16 05:19 BUN/Creatinine Ratio 20.83 % 09/23/16 05:19 Glucose 107 mg/dL (75-100) H 09/23/16 05:19 Calcium 8.8 mg/dL (8.4-10.2) 09/23/16 05:19 Magnesium 2.30 mg/dL (1.7-2.3) 09/23/16 05:19 Troponin T < 0.010 ng/mL (0.00-0.029) 09/17/16 00:30 Triglycerides 50 mg/dL (2-149) 09/18/16 06:21 Cholesterol 148 mg/dL (50-199) 09/18/16 06:21 LDL Cholesterol Direct 103 mg/dL (50-130) 09/18/16 06:21 HDL Cholesterol 35 mg/dL (40-59) L 09/18/16 06:21 Cholesterol/HDL Ratio 4.22 % 09/18/16 06:21
--- NOTE | 2016-09-23 16:09 | XRay Report ---
Left wrist 2 views. History: Pain and swelling. Findings: There is a fracture of the distal radial metaphysis. There is also fracture of the ulnar styloid. Impression: Colles' fracture of the left wrist.
[2016-09-23] MEDS: PERCOCET 5/325 PO PRN (17:47)
[2016-09-23] MEDS: FLOMAX PO SCH (21:37)
[2016-09-23] MEDS: ZOCOR PO SCH (21:37)
[2016-09-24] MEDS: PERCOCET 5/325 PO PRN ×3 (00:53→20:19)
[2016-09-24] MEDS: APRESOLINE PO SCH (07:43)
[2016-09-24] MEDS: PROCARDIA XL PO SCH ×3 (07:43→22:16)
[2016-09-24] MEDS: LEVAQUIN 750MG/150ML 750 MG/150 ML BAG IV SCH (07:47)
[2016-09-24] MEDS: BUMEX PO SCH ×3 (08:21→20:19)
[2016-09-24] MEDS: ASPIRIN PO SCH (09:41)
[2016-09-24] MEDS: CLEOCIN PO SCH ×4 (09:42→22:14)
[2016-09-24] MEDS: NORVASC PO SCH (09:42)
[2016-09-24] MEDS: IMDUR PO SCH (09:42)
[2016-09-24] MEDS: COREG PO SCH ×2 (09:42→22:15)
--- NOTE | 2016-09-24 10:10 | Vascular Lab Report ---
CAROTID DUPLEX STUDY: RIGHT PSVEDV CCA PROX:7714 CCA DIST:6913 ICA PROX:5214 ICA MID:7422 ICA DIST:8323 ECA: 141 VERT: 61 17 LEFT PSVEDV CCA PROX:9015 CCA DIST:7116 ICA PROX:6822 ICA MID:9828 ICA DIST:46938 ECA: 93 VERT: 42 15 REASON FOR EXAM: Stroke. COMMENTS ON THE RIGHT: Doppler frequency analysis is consistent with 16 to 49 percent diameter reduction of the internal carotid artery. Minimal amount of plaque is seen. The common carotid artery is patent. The external carotid artery is patent. The vertebral artery has antegrade flow. COMMENTS ON THE LEFT: Doppler frequency analysis is consistent with 16 to 49 percent diameter reduction of the internal carotid artery. Minimal amount of plaque is seen. The common carotid artery is patent. The external carotid artery is patent. The vertebral artery has antegrade flow. IMPRESSION: Less than 50% diameter reduction in the internal carotid arteries bilaterally. Consider repeat carotid artery duplex in 12 months.
[2016-09-24] MEDS: BENADRYL PO PRN ×2 (10:49→20:19)
--- NOTE | 2016-09-24 15:02 | Progress Note ---
Assessment and Plan Assessment and plan: --Fracture left ulna and radius/swelling left hand Probably secondary to fall at home when he had acute CVA Pain Medications elevate the limb, orthopedic consult --Hypokalemia; corrected --Acute CVA ischemic/left hemiparesis Aspirin and statin, physical therapy occupational therapy rehabilitation speech therapy Not a candidate for TPA, , Unable to get MRI secondary to pacemaker, neurology following echocardiogram EF 55-60%, physical therapy occupational therapy Possible discharge home with home PT in 1-2 days --Malignant hypertension; Well-controlled ,closely monitor --Dyslipidemia; continue statin --Acute on chronic diastolic congestive heart failure,EF 55-60% Continue current anti-failure medications, closely monitor input output --DVT prophylaxis; with Lovenox --DC planning per case management; possible subacute rehabilitation versus home with home health when medically stable Plan of care discussed with the patient, his girlfriend and the nurse Follow-up orthopedic recommendations History Interval history: Patient seen and evaluated medical records reviewed no new events reported by the nursing staff The patient feels slightly better, complaints of left wrist pain Orthopedic consultation, evaluation pending Alert awake oriented 3 not in acute distress, patient's girlfriend is at bedside Hospitalist Physical - Constitutional Vitals: Temp Pulse Resp BP Pulse Ox 97.8 F 70 20 138/65 96 09/24/16 08:00 09/24/16 08:00 09/24/16 08:00 09/24/16 08:00 09/24/16 08:00 General appearance: Present: no acute distress, well-nourished, obese (morbidly obese) - EENT Eyes: Present: PERRL, EOM intact - Neck Neck: Present: supple, normal ROM - Respiratory Respiratory effort: normal Respiratory: bilateral: diminished, negative: rales, rhonchi, wheezing - Cardiovascular Rhythm: regular Heart Sounds: Present: S1 & S2 - Extremities Extremities: no ischemia, No edema - Abdominal General gastrointestinal: soft, non-tender, non-distended, normal bowel sounds - Integumentary Integumentary: Present: clear, warm - Psychiatric Psychiatric: appropriate mood/affect, cooperative - Neurologic Neurologic: CNII-XII intact, moves all extremities Results - Labs CBC & Chem 7: 09/23/16 05:19 09/23/16 05:19 Labs: Laboratory Last Values WBC 5.4 K/mm3 (4.5-11.0) 09/23/16 05:19 RBC 4.04 M/mm3 (3.65-5.03) 09/23/16 05:19 Hgb 11.9 gm/dl (11.8-15.2) 09/23/16 05:19 Hct 35.6 % (35.5-45.6) 09/23/16 05:19 MCV 88 fl (84-94) 09/23/16 05:19 MCH 30 pg (28-32) 09/23/16 05:19 MCHC 33 % (32-34) 09/23/16 05:19 RDW 15.8 % (13.2-15.2) H 09/23/16 05:19 Plt Count 226 K/mm3 (140-440) 09/23/16 05:19 Lymph % (Auto) 19.9 % (13.4-35.0) 09/23/16 05:19 [place] % (Auto) 12.0 % (0.0-7.3) H 09/23/16 05:19 Eos % (Auto) 10.7 % (0.0-4.3) H 09/23/16 05:19 Baso % (Auto) 1.2 % (0.0-1.8) 09/23/16 05:19 Lymph # 1.1 K/mm3 (1.2-5.4) L 09/23/16 05:19 [place] # 0.6 K/mm3 (0.0-0.8) 09/23/16 05:19 Eos # 0.6 K/mm3 (0.0-0.4) H 09/23/16 05:19 Baso # 0.1 K/mm3 (0.0-0.1) 09/23/16 05:19 Seg Neutrophils % 56.2 % (40.0-70.0) 09/23/16 05:19 Seg Neutrophils # 3.0 K/mm3 (1.8-7.7) 09/23/16 05:19 Sodium 145 mmol/L (137-145) 09/21/16 07:39 Potassium 3.4 mmol/L (3.6-5.0) L 09/22/16 07:06 Chloride 104.5 mmol/L (98-107) 09/21/16 07:39 Carbon Dioxide 26 mmol/L (22-30) 09/23/16 05:19 Anion Gap 17 mmol/L 09/21/16 07:39 BUN 25 mg/dL (9-20) H 09/23/16 05:19 Creatinine 1.2 mg/dL (0.8-1.5) 09/23/16 05:19 Estimated GFR > 60 ml/min 09/23/16 05:19 BUN/Creatinine Ratio 20.83 % 09/23/16 05:19 Glucose 107 mg/dL (75-100) H 09/23/16 05:19 Calcium 8.8 mg/dL (8.4-10.2) 09/23/16 05:19 Magnesium 2.30 mg/dL (1.7-2.3) 09/23/16 05:19 Troponin T < 0.010 ng/mL (0.00-0.029) 09/17/16 00:30 Triglycerides 50 mg/dL (2-149) 09/18/16 06:21 Cholesterol 148 mg/dL (50-199) 09/18/16 06:21 LDL Cholesterol Direct 103 mg/dL (50-130) 09/18/16 06:21 HDL Cholesterol 35 mg/dL (40-59) L 09/18/16 06:21 Cholesterol/HDL Ratio 4.22 % 09/18/16 06:21
[2016-09-24] MEDS: ZOCOR PO SCH (22:14)
[2016-09-24] MEDS: FLOMAX PO SCH (22:14)
[2016-09-25] MEDS: PERCOCET 5/325 PO PRN ×3 (06:34→22:04)
[2016-09-25] MEDS: BENADRYL PO PRN ×2 (06:34→22:04)
[2016-09-25] MEDS: COREG PO SCH ×2 (09:07→22:07)
[2016-09-25] MEDS: PROCARDIA XL PO SCH ×2 (09:07→22:52)
[2016-09-25] MEDS: NORVASC PO SCH (09:07)
[2016-09-25] MEDS: ASPIRIN PO SCH (09:07)
[2016-09-25] MEDS: CLEOCIN PO SCH ×4 (09:07→22:05)
[2016-09-25] MEDS: IMDUR PO SCH (09:07)
[2016-09-25] MEDS: BUMEX PO SCH ×3 (09:07→20:25)
--- NOTE | 2016-09-25 14:00 | Consultation ---
History of Present Illness - [facility] Consult date: 09/25/16 Consult reason: fracture History of present illness: 71-year-old male who complains of left wrist pain and swelling states he suffered a stroke prior to admission where he fell onto his left upper extremity. A CT scan was ordered due to increased swelling in the left upper extremity and reportedly showed a fracture of the distal radius. X-rays were ordered by me and it indeed shows a displaced left distal radius fracture with some mild comminution Past History Past Medical History: heart failure, hypertension, other (obesity) Past Surgical History: Other (ICD/Pacemaker) Social history: single. denies: smoking, alcohol abuse, prescription drug abuse Family history: hypertension Medications and Allergies Allergies Allergy/AdvReac Type Severity Reaction Status Date / Time No Known Allergies Allergy Unverified 06/29/13 10:35 Home Medications Medication Instructions Recorded Confirmed Last Taken Type Aspirin [Aspirin BABY CHEW TAB] 81 mg PO QDAY 12/09/15 09/16/16 12/08/15 History Bumetanide [Bumex] 1 mg PO TID 12/09/15 09/16/16 12/08/15 History Carvedilol [Coreg] 25 mg PO BID 12/09/15 09/16/16 12/08/15 History ISOSORBIDE MONOnitrate [Imdur ER] 60 mg PO QDAY 12/09/15 09/16/16 12/08/15 History Ondansetron [Zofran TAB] 4 mg PO Q8HR PRN #14 tablet 12/09/15 09/16/16 Unknown Rx Pravastatin Sodium [Pravastatin] 20 mg PO QHS 12/09/15 09/16/16 12/08/15 History Tamsulosin [Flomax] 0.4 mg PO QDAY 12/09/15 09/16/16 12/08/15 History amLODIPine [Norvasc] 5 mg PO DAILY 12/09/15 09/16/16 12/08/15 History hydrALAZINE [Apresoline TAB] 100 mg PO TID 12/09/15 09/16/16 12/08/15 History Active Meds: Active Medications Acetaminophen (Tylenol) 650 mg PO Q6H PRN PRN Reason: Pain, Mild (1-3) Last Admin: 09/19/16 10:02 Dose: 650 mg Amlodipine Besylate (Norvasc) 5 mg PO DAILY [facility] Last Admin: 09/25/16 09:07 Dose: 5 mg Aspirin (Aspirin) 325 mg PO QDAY [facility] Last Admin: 09/25/16 09:07 Dose: 325 mg Bumetanide (Bumex) 1 mg PO TID [facility] Last Admin: 09/25/16 13:34 Dose: 1 mg Carvedilol (Coreg) 25 mg PO BID [facility] Last Admin: 09/25/16 09:07 Dose: 25 mg Clindamycin HCl (Cleocin) 300 mg PO QID [facility] Last Admin: 09/25/16 13:34 Dose: 300 mg Diphenhydramine HCl (Benadryl) 25 mg PO Q6H PRN PRN Reason: Itching Last Admin: 09/25/16 06:34 Dose: 25 mg Isosorbide Mononitrate (Imdur) 60 mg PO QDAY [facility] Last Admin: 09/25/16 09:07 Dose: 60 mg Nifedipine (Procardia Xl) 30 mg PO Q12HR [facility] Last Admin: 09/25/16 09:07 Dose: 30 mg Oxycodone/Acetaminophen (Percocet 5/325) 1 tab PO Q6H PRN PRN Reason: Pain, Moderate (4-6) Last Admin: 09/25/16 06:34 Dose: 1 tab Simvastatin (Zocor) 20 mg PO QHS [facility] Last Admin: 09/24/16 22:14 Dose: 20 mg Sodium Chloride (Sodium Chloride Flush Syringe 10 Ml) 10 ml IV PRN PRN PRN Reason: LINE FLUSH Tamsulosin HCl (Flomax) 0.4 mg PO QHS [facility] Last Admin: 09/24/16 22:14 Dose: 0.4 mg Physical Examination - Physical exam Narrative exam: Physical examination reveals moderate swelling at the left wrist there is tenderness to palpation as well as gross motion skin is intact and has good capillary refill distally Assessment and Plan Assessment- displaced left distal radius fracture Plan - she will require an open reduction internal fixation of the left distal radius
--- NOTE | 2016-09-25 15:36 | Progress Note ---
Assessment and Plan Assessment and plan: --Fracture left ulna and radius/swelling left hand Orthopedic evaluation noted ,possible ORIF tomorrow --Hypokalemia; corrected --Acute CVA ischemic/left hemiparesis Aspirin and statin, physical therapy occupational therapy rehabilitation speech therapy Not a candidate for TPA, , Unable to get MRI secondary to pacemaker, neurology following echocardiogram EF 55-60%, physical therapy occupational therapy Possible discharge home with home PT in 1-2 days --Malignant hypertension; Well-controlled ,closely monitor --Dyslipidemia; continue statin --Acute on chronic diastolic congestive heart failure,EF 55-60% Continue current anti-failure medications, closely monitor input output --DVT prophylaxis; with Lovenox --DC planning per case management; possible subacute rehabilitation versus home with home health when medically stable Ortho surgery tomorrow History Interval history: Patient seen and evaluated medical records reviewed Left hand swelling very slightly decreased, still has a lot of pain Orthopedic evaluation noted and appreciated Possible open reduction and internal fixation of the left distal radius tomorrow Hospitalist Physical - Constitutional Vitals: Temp Pulse Resp BP Pulse Ox 98.5 F 74 22 146/74 95 09/25/16 08:00 09/25/16 08:00 09/25/16 08:00 09/25/16 08:00 09/25/16 08:00 General appearance: Present: no acute distress, well-nourished, obese (morbidly obese) - EENT Eyes: Present: PERRL, EOM intact - Neck Neck: Present: supple, normal ROM - Respiratory Respiratory effort: normal Respiratory: negative: rales, rhonchi, wheezing - Cardiovascular Rhythm: regular Heart Sounds: Present: S1 & S2 - Extremities Extremities: abnormal (swelling left wrist and hand) Extremity abnormal: edema - Abdominal General gastrointestinal: soft, non-tender, non-distended, normal bowel sounds - Integumentary Integumentary: Present: clear, warm - Psychiatric Psychiatric: appropriate mood/affect, cooperative - Neurologic Neurologic: other (left hemiparesis) Results - Labs CBC & Chem 7: 09/23/16 05:19 09/23/16 05:19 Labs: Laboratory Last Values WBC 5.4 K/mm3 (4.5-11.0) 09/23/16 05:19 RBC 4.04 M/mm3 (3.65-5.03) 09/23/16 05:19 Hgb 11.9 gm/dl (11.8-15.2) 09/23/16 05:19 Hct 35.6 % (35.5-45.6) 09/23/16 05:19 MCV 88 fl (84-94) 09/23/16 05:19 MCH 30 pg (28-32) 09/23/16 05:19 MCHC 33 % (32-34) 09/23/16 05:19 RDW 15.8 % (13.2-15.2) H 09/23/16 05:19 Plt Count 226 K/mm3 (140-440) 09/23/16 05:19 Lymph % (Auto) 19.9 % (13.4-35.0) 09/23/16 05:19 [place] % (Auto) 12.0 % (0.0-7.3) H 09/23/16 05:19 Eos % (Auto) 10.7 % (0.0-4.3) H 09/23/16 05:19 Baso % (Auto) 1.2 % (0.0-1.8) 09/23/16 05:19 Lymph # 1.1 K/mm3 (1.2-5.4) L 09/23/16 05:19 [place] # 0.6 K/mm3 (0.0-0.8) 09/23/16 05:19 Eos # 0.6 K/mm3 (0.0-0.4) H 09/23/16 05:19 Baso # 0.1 K/mm3 (0.0-0.1) 09/23/16 05:19 Seg Neutrophils % 56.2 % (40.0-70.0) 09/23/16 05:19 Seg Neutrophils # 3.0 K/mm3 (1.8-7.7) 09/23/16 05:19 Sodium 145 mmol/L (137-145) 09/21/16 07:39 Potassium 3.4 mmol/L (3.6-5.0) L 09/22/16 07:06 Chloride 104.5 mmol/L (98-107) 09/21/16 07:39 Carbon Dioxide 26 mmol/L (22-30) 09/23/16 05:19 Anion Gap 17 mmol/L 09/21/16 07:39 BUN 25 mg/dL (9-20) H 09/23/16 05:19 Creatinine 1.2 mg/dL (0.8-1.5) 09/23/16 05:19 Estimated GFR > 60 ml/min 09/23/16 05:19 BUN/Creatinine Ratio 20.83 % 09/23/16 05:19 Glucose 107 mg/dL (75-100) H 09/23/16 05:19 Calcium 8.8 mg/dL (8.4-10.2) 09/23/16 05:19 Magnesium 2.30 mg/dL (1.7-2.3) 09/23/16 05:19 Troponin T < 0.010 ng/mL (0.00-0.029) 09/17/16 00:30 Triglycerides 50 mg/dL (2-149) 09/18/16 06:21 Cholesterol 148 mg/dL (50-199) 09/18/16 06:21 LDL Cholesterol Direct 103 mg/dL (50-130) 09/18/16 06:21 HDL Cholesterol 35 mg/dL (40-59) L 09/18/16 06:21 Cholesterol/HDL Ratio 4.22 % 09/18/16 06:21
--- NOTE | 2016-09-25 16:31 | Anesthesia Consultation ---
Anesthesia Consult and Med Hx Date of service: 09/25/16 - Airway Anesthetic Teeth Evaluation: Poor (multiple missing teeth) ROM Head & Neck: Adequate Mental/Hyoid Distance: Adequate Mallampati Class: Class III Intubation Access Assessment: Possibly Difficult - Pre-Operative Health Status ASA Pre-Surgery Classification: ASA3 Proposed Anesthetic Plan: General Nerve Block: IS - Pulmonary Hx Smoking: Yes (quit 25 years ago) Hx Asthma: No COPD: No Hx Pneumonia: Yes Hx Sleep Apnea: Yes (uses CPAP) - Cardiovascular System Hx Hypertension: Yes Hx Coronary Artery Disease: No Hx Heart Attack/AMI: No Hx Angina: Yes (h/o CHF, EF 55-60%) Hx Percutaneous Transluminal Coronary Angioplasty (PTCA): No Hx Pacemaker: Yes Hx Internal Defibrillator: Yes Hx Valvular Heart Disease: No Hx Heart Murmur: No Hx Peripheral Vascular Disease: No - Central Nervous System CVA: Yes (acute CVA, left side weakness) Hx Psychiatric Problems: No - Gastrointestinal Hx Ulcer: Yes - Endocrine Hx End Stage Renal Disease: No - Other Systems Hx Obesity: Yes (Morbid obesity BMI 48.1)
[2016-09-25] MEDS: ZOCOR PO SCH (22:03)
[2016-09-25] MEDS: FLOMAX PO SCH (22:04)
[2016-09-26] MEDS ORDERED: MORPHINE IV PRN (01:26)
[2016-09-26] MEDS: MORPHINE IV PRN ×2 (02:36→18:27)
[2016-09-26] MEDS ORDERED: CLONIDINE 1,000 MCG/10 ML VIAL EP ONE (08:00)
[2016-09-26] MEDS ORDERED: MARCAINE-EPI 0.5%-1:200,000 INFILTRATI ONE (08:00)
[2016-09-26] MEDS ORDERED: XYLOCAINE 1% 20 mL ONE (08:00)
[2016-09-26] MEDS ORDERED: DECADRON ONE ×2 (08:00→08:18)
[2016-09-26] MEDS ORDERED: LACTATED RINGERS 1,000 ML IV SCH (08:00)
[2016-09-26] MEDS ORDERED: VERSED IV NR (08:00)
[2016-09-26] MEDS ORDERED: PEPCID IV NR (08:00)
[2016-09-26] MEDS ORDERED: DIPRIVAN 10 MG/ML IV ONE ×3 (08:16→09:40)
[2016-09-26] MEDS ORDERED: SUBLIMAZE ONE (08:16)
[2016-09-26] MEDS ORDERED: ZOFRAN ONE (08:18)
[2016-09-26] MEDS ORDERED: VERSED ONE (08:44)
[2016-09-26] MEDS ORDERED: ANCEF/STERILE WATER 2 GM/20 ML IV NR (09:00)
[2016-09-26] MEDS ORDERED: ROBINUL ONE (09:23)
[2016-09-26] MEDS ORDERED: NACL 0.9% IR ONE (09:55)
[2016-09-26] MEDS: BUMEX PO SCH ×3 (11:28→20:40)
[2016-09-26] MEDS ORDERED: SODIUM CHLORIDE FLUSH SYRINGE 10 ML IV SCH (12:00)
--- NOTE | 2016-09-26 12:08 | Procedure Note ---
Date of procedure: 09/26/16 Pre-op diagnosis: displaced left distal radius fracture Post-op diagnosis: same Procedure: Procedure Open reduction internal fixation left distal radius Indications A 71-year-old male who sustained a displaced left distal radius fracture 1 week ago patient states he developed weakness on the left side of his body fell onto the left side and experienced pain and swelling x-rays revealing fracture of the distal radius with displacement Procedure The patient was brought to the operating room after being given a scalene nerve block and preoperative holding next the patient was placed on or table supine the left upper extremity was then prepped and draped in the usual sterile manner. A timeout procedure was done to identify the patient and the proper operative site next the arm was exsanguinated followed by inflation of the pneumatic tourniquet to 250 mmHg. A volar incision was made along the distal radius this was then taken down sharply through skin and subcutaneous the flexor carpi radialis tendon was identified and the incision was carried just lateral and deep care was taken to identify the neurovascular bundle next the quadratus tendon was incised and the risks of distal radius was manipulated into a more reduced position this was then stabilized using a DVR standard left locking plate with temporary fixation via K wires. Screws of various lengths were applied to the plate and using C-arm fluoroscopy fracture reduction and screw fixations were evaluated and found to be in good position next via wound was copiously irrigated with saline solution the wound was then closed in a standard routine fashion. Dressings were applied the patient tolerated the procedure and there were no complications, he was taken to postanesthesia recovery. Anesthesia: regional Surgeon: ROBERTA ESTRADA Estimated blood loss: minimal Condition: stable Disposition: PACU
[2016-09-26] MEDS: NORVASC PO SCH (12:27)
[2016-09-26] MEDS: ASPIRIN PO SCH (12:29)
[2016-09-26] MEDS: IMDUR PO SCH (12:29)
[2016-09-26] MEDS: CLEOCIN PO SCH ×4 (12:30→22:07)
[2016-09-26] MEDS: COREG PO SCH ×2 (12:31→22:08)
[2016-09-26] MEDS: PROCARDIA XL PO SCH ×2 (12:31→22:08)
--- NOTE | 2016-09-26 15:31 | XRay Report ---
Left Wrist 2 views fluoroscopic images: History: Left wrist fracture. Findings: There is internal fixation noted with metallic plate and screws of fracture Colles distal radius. Fracture fragments are in satisfactory alignment. Impression: Stable fixation.
--- NOTE | 2016-09-26 15:52 | Progress Note ---
Assessment and Plan Assessment and plan: --Fracture left ulna and radius/swelling left hand Status post ORIF . Supportive care --Hypokalemia; replenish per protocol and monitor levels --Acute CVA ischemic/left hemiparesis Aspirin and statin, physical therapy occupational therapy rehabilitation speech therapy Not a candidate for TPA, , Unable to get MRI secondary to pacemaker, neurology following echocardiogram EF 55-60%, physical therapy occupational therapy Possible discharge home with home PT in 1-2 days --Malignant hypertension; Well-controlled ,closely monitor --Dyslipidemia; continue statin --Acute on chronic diastolic congestive heart failure,EF 55-60% Continue current anti-failure medications, closely monitor input output --DVT prophylaxis; with Lovenox --DC planning per case management; possible subacute rehabilitation versus home with home health when medically stable Ortho surgery tomorrow History Interval history: Sincerely and evaluated medical records reviewed Patient underwent Open reduction internal fixation left distal radius today Sedated , not in acute distress Girlfriend is at the bedside Hospitalist Physical - Constitutional Vitals: Temp Pulse Resp BP Pulse Ox 97.4 F L 70 18 132/78 98 09/26/16 15:00 09/26/16 15:00 09/26/16 15:00 09/26/16 15:00 09/26/16 15:00 General appearance: Present: no acute distress, well-nourished, obese (morbidly obese) - EENT Eyes: Present: PERRL, EOM intact - Neck Neck: Present: supple, normal ROM - Respiratory Respiratory effort: normal Respiratory: negative: rales, rhonchi, wheezing - Cardiovascular Rhythm: regular Heart Sounds: Present: S1 & S2 - Extremities Extremities: abnormal (left wrist in cast) Extremity abnormal: edema - Abdominal General gastrointestinal: soft, non-tender, non-distended, normal bowel sounds - Integumentary Integumentary: Present: clear, warm - Psychiatric Psychiatric: appropriate mood/affect, other (dictated easy awakens) - Neurologic Neurologic: CNII-XII intact, other (left-sided weakness) Results - Labs CBC & Chem 7: 09/23/16 05:19 09/23/16 05:19 Labs: Laboratory Last Values WBC 5.4 K/mm3 (4.5-11.0) 09/23/16 05:19 RBC 4.04 M/mm3 (3.65-5.03) 09/23/16 05:19 Hgb 11.9 gm/dl (11.8-15.2) 09/23/16 05:19 Hct 35.6 % (35.5-45.6) 09/23/16 05:19 MCV 88 fl (84-94) 09/23/16 05:19 MCH 30 pg (28-32) 09/23/16 05:19 MCHC 33 % (32-34) 09/23/16 05:19 RDW 15.8 % (13.2-15.2) H 09/23/16 05:19 Plt Count 226 K/mm3 (140-440) 09/23/16 05:19 Lymph % (Auto) 19.9 % (13.4-35.0) 09/23/16 05:19 [place] % (Auto) 12.0 % (0.0-7.3) H 09/23/16 05:19 Eos % (Auto) 10.7 % (0.0-4.3) H 09/23/16 05:19 Baso % (Auto) 1.2 % (0.0-1.8) 09/23/16 05:19 Lymph # 1.1 K/mm3 (1.2-5.4) L 09/23/16 05:19 [place] # 0.6 K/mm3 (0.0-0.8) 09/23/16 05:19 Eos # 0.6 K/mm3 (0.0-0.4) H 09/23/16 05:19 Baso # 0.1 K/mm3 (0.0-0.1) 09/23/16 05:19 Seg Neutrophils % 56.2 % (40.0-70.0) 09/23/16 05:19 Seg Neutrophils # 3.0 K/mm3 (1.8-7.7) 09/23/16 05:19 Sodium 145 mmol/L (137-145) 09/21/16 07:39 Potassium 3.4 mmol/L (3.6-5.0) L 09/22/16 07:06 Chloride 104.5 mmol/L (98-107) 09/21/16 07:39 Carbon Dioxide 26 mmol/L (22-30) 09/23/16 05:19 Anion Gap 17 mmol/L 09/21/16 07:39 BUN 25 mg/dL (9-20) H 09/23/16 05:19 Creatinine 1.2 mg/dL (0.8-1.5) 09/23/16 05:19 Estimated GFR > 60 ml/min 09/23/16 05:19 BUN/Creatinine Ratio 20.83 % 09/23/16 05:19 Glucose 107 mg/dL (75-100) H 09/23/16 05:19 Calcium 8.8 mg/dL (8.4-10.2) 09/23/16 05:19 Magnesium 2.30 mg/dL (1.7-2.3) 09/23/16 05:19 Troponin T < 0.010 ng/mL (0.00-0.029) 09/17/16 00:30 Triglycerides 50 mg/dL (2-149) 09/18/16 06:21 Cholesterol 148 mg/dL (50-199) 09/18/16 06:21 LDL Cholesterol Direct 103 mg/dL (50-130) 09/18/16 06:21 HDL Cholesterol 35 mg/dL (40-59) L 09/18/16 06:21 Cholesterol/HDL Ratio 4.22 % 09/18/16 06:21
[2016-09-26] MEDS: PERCOCET 5/325 PO PRN (22:07)
[2016-09-26] MEDS: ZOCOR PO SCH (22:07)
[2016-09-26] MEDS: FLOMAX PO SCH (22:07)
[2016-09-26] MEDS: BENADRYL PO PRN (22:07)
[2016-09-27] MEDS: BUMEX PO SCH ×3 (08:01→22:35)
[2016-09-27] MEDS: PERCOCET 5/325 PO PRN ×2 (08:01→17:47)
[2016-09-27] MEDS: PROCARDIA XL PO SCH ×2 (10:32→22:44)
[2016-09-27] MEDS: COREG PO SCH ×2 (10:33→22:35)
[2016-09-27] MEDS: IMDUR PO SCH (10:33)
[2016-09-27] MEDS: NORVASC PO SCH (10:33)
[2016-09-27] MEDS: CLEOCIN PO SCH ×4 (10:34→22:35)
[2016-09-27] MEDS: ASPIRIN PO SCH (10:34)
[2016-09-27] MEDS: MORPHINE IV PRN ×2 (12:00→22:38)
[2016-09-27] MEDS: PEPCID PO SCH ×2 (12:14→22:35)
--- NOTE | 2016-09-27 14:48 | Progress Note ---
Assessment and Plan Assessment and plan: --Fracture left ulna and radius, status post ORIF Supportive care --Hypokalemia; replenish per protocol and monitor levels --Acute CVA ischemic/left hemiparesis Aspirin and statin, physical therapy occupational therapy rehabilitation speech therapy Not a candidate for TPA, , Unable to get MRI secondary to pacemaker, neurology following echocardiogram EF 55-60%, physical therapy occupational therapy Awaiting longterm placement --Malignant hypertension; Well-controlled ,closely monitor --Dyslipidemia; continue statin --Acute on chronic diastolic congestive heart failure,EF 55-60% Continue current anti-failure medications, closely monitor input output --DVT prophylaxis; with Lovenox Awaiting placement, continue physical therapy and occupational therapy History Interval history: Patient seen and evaluated this is slightly better Complaints of pain at the surgery site left wrist V according to 3 not in acute distress Vital signs reviewed Hospitalist Physical - Constitutional Vitals: Temp Pulse Resp BP Pulse Ox 98.1 F 70 16 171/79 95 09/27/16 07:45 09/27/16 10:33 09/27/16 07:45 09/27/16 10:33 09/27/16 07:45 General appearance: Present: no acute distress, well-nourished, obese (morbidly obese) - EENT Eyes: Present: PERRL, EOM intact - Neck Neck: Present: supple, normal ROM - Respiratory Respiratory effort: normal Respiratory: bilateral: diminished, negative: rales, rhonchi, wheezing - Cardiovascular Rhythm: regular Heart Sounds: Present: S1 & S2 - Extremities Extremities: no ischemia, pulses intact, abnormal (surgical dressing left wrist and hand) Peripheral Pulses: within normal limits - Abdominal General gastrointestinal: soft, non-tender, non-distended - Integumentary Integumentary: Present: clear, warm - Psychiatric Psychiatric: appropriate mood/affect, cooperative - Neurologic Neurologic: other (left-sided hemiparesis) Results - Labs CBC & Chem 7: 09/23/16 05:19 09/23/16 05:19 Labs: Laboratory Last Values WBC 5.4 K/mm3 (4.5-11.0) 09/23/16 05:19 RBC 4.04 M/mm3 (3.65-5.03) 09/23/16 05:19 Hgb 11.9 gm/dl (11.8-15.2) 09/23/16 05:19 Hct 35.6 % (35.5-45.6) 09/23/16 05:19 MCV 88 fl (84-94) 09/23/16 05:19 MCH 30 pg (28-32) 09/23/16 05:19 MCHC 33 % (32-34) 09/23/16 05:19 RDW 15.8 % (13.2-15.2) H 09/23/16 05:19 Plt Count 226 K/mm3 (140-440) 09/23/16 05:19 Lymph % (Auto) 19.9 % (13.4-35.0) 09/23/16 05:19 [place] % (Auto) 12.0 % (0.0-7.3) H 09/23/16 05:19 Eos % (Auto) 10.7 % (0.0-4.3) H 09/23/16 05:19 Baso % (Auto) 1.2 % (0.0-1.8) 09/23/16 05:19 Lymph # 1.1 K/mm3 (1.2-5.4) L 09/23/16 05:19 [place] # 0.6 K/mm3 (0.0-0.8) 09/23/16 05:19 Eos # 0.6 K/mm3 (0.0-0.4) H 09/23/16 05:19 Baso # 0.1 K/mm3 (0.0-0.1) 09/23/16 05:19 Seg Neutrophils % 56.2 % (40.0-70.0) 09/23/16 05:19 Seg Neutrophils # 3.0 K/mm3 (1.8-7.7) 09/23/16 05:19 Sodium 145 mmol/L (137-145) 09/21/16 07:39 Potassium 3.4 mmol/L (3.6-5.0) L 09/22/16 07:06 Chloride 104.5 mmol/L (98-107) 09/21/16 07:39 Carbon Dioxide 26 mmol/L (22-30) 09/23/16 05:19 Anion Gap 17 mmol/L 09/21/16 07:39 BUN 25 mg/dL (9-20) H 09/23/16 05:19 Creatinine 1.2 mg/dL (0.8-1.5) 09/23/16 05:19 Estimated GFR > 60 ml/min 09/23/16 05:19 BUN/Creatinine Ratio 20.83 % 09/23/16 05:19 Glucose 107 mg/dL (75-100) H 09/23/16 05:19 Calcium 8.8 mg/dL (8.4-10.2) 09/23/16 05:19 Magnesium 2.30 mg/dL (1.7-2.3) 09/23/16 05:19 Troponin T < 0.010 ng/mL (0.00-0.029) 09/17/16 00:30 Triglycerides 50 mg/dL (2-149) 09/18/16 06:21 Cholesterol 148 mg/dL (50-199) 09/18/16 06:21 LDL Cholesterol Direct 103 mg/dL (50-130) 09/18/16 06:21 HDL Cholesterol 35 mg/dL (40-59) L 09/18/16 06:21 Cholesterol/HDL Ratio 4.22 % 09/18/16 06:21
[2016-09-27] MEDS: FLOMAX PO SCH (22:38)
[2016-09-27] MEDS: LOVENOX SUB-Q SCH (22:38)
[2016-09-27] MEDS: ZOCOR PO SCH (22:44)
[2016-09-28] MEDS: PERCOCET 5/325 PO PRN ×3 (03:25→19:02)
[2016-09-28 08:18] LABS: Basophils % (Auto) 0.9 % (0.0-1.8); Eosinophils % (Auto) 4.2 % (0.0-4.3); Hematocrit 37.9 % (35.5-45.6); Hemoglobin 12.5 gm/dl (11.8-15.2); Mean Corpuscular HGB Conc 33 % (32-34); Mean Corpuscular Hemoglobin 29 pg (28-32); Mean Corpuscular Volume 88 fl (84-94); Platelet Count 326 K/mm3 (140-440); Red Cell Distribution Width 15.6 % (13.2-15.2); White Blood Count 8.9 K/mm3 (4.5-11.0)
[2016-09-28 08:21] LABS: Anion Gap 16 mmol/L; BUN/Creatinine Ratio 16.92; Blood Urea Nitrogen 22 mg/dL (9-20); Calcium 8.4 mg/dL (8.4-10.2); Carbon Dioxide 30 mmol/L (22-30); Chloride 99.6 mmol/L (98-107); Glucose 107 mg/dL (75-100); Potassium 3.3 mmol/L (3.6-5.0); Sodium 142 mmol/L (137-145)
[2016-09-28] MEDS: MORPHINE IV PRN ×2 (09:07→15:06)
[2016-09-28] MEDS: PEPCID PO SCH ×2 (09:08→22:46)
[2016-09-28] MEDS: COREG PO SCH ×2 (09:08→22:47)
[2016-09-28] MEDS: PROCARDIA XL PO SCH ×2 (09:08→22:48)
[2016-09-28] MEDS: ASPIRIN PO SCH (09:08)
[2016-09-28] MEDS: NORVASC PO SCH (09:08)
[2016-09-28] MEDS: CLEOCIN PO SCH ×4 (09:08→22:47)
[2016-09-28] MEDS: IMDUR PO SCH (09:09)
[2016-09-28] MEDS: BUMEX PO SCH ×3 (09:09→22:46)
--- NOTE | 2016-09-28 14:29 | Progress Note ---
Assessment and Plan Assessment and plan: --Fracture left ulna and radius, status post ORIF --Hypokalemia; replenish per protocol and monitor levels --Acute CVA ischemic/left hemiparesis Aspirin and statin, physical therapy occupational therapy rehabilitation speech therapy Not a candidate for TPA, , Unable to get MRI secondary to pacemaker, neurology following echocardiogram EF 55-60%, physical therapy occupational therapy Awaiting residential placement --Malignant hypertension; Well-controlled ,closely monitor --Dyslipidemia; continue statin --Acute on chronic diastolic congestive heart failure,EF 55-60% Continue current anti-failure medications, closely monitor input output --Physical Therapy occupational therapy --DVT prophylaxis; with Lovenox Awaiting SNF placement History Interval history: Patient is Doing well No new complaints, vital signs stable Hospitalist Physical - Constitutional Vitals: Temp Pulse Resp BP Pulse Ox 98.7 F 72 18 150/78 94 09/28/16 08:17 09/28/16 09:08 09/28/16 08:17 09/28/16 09:08 09/28/16 08:17 General appearance: Present: no acute distress, well-nourished, obese (morbidly obese) - EENT Eyes: Present: PERRL, EOM intact - Neck Neck: Present: supple, normal ROM - Respiratory Respiratory effort: normal Respiratory: bilateral: diminished, negative: rales, rhonchi, wheezing - Cardiovascular Rhythm: regular Heart Sounds: Present: S1 & S2 - Extremities Extremities: no ischemia, No edema - Abdominal General gastrointestinal: soft, non-tender, non-distended, normal bowel sounds - Integumentary Integumentary: Present: clear, warm - Psychiatric Psychiatric: appropriate mood/affect, cooperative - Neurologic Neurologic: CNII-XII intact, moves all extremities Results - Labs CBC & Chem 7: 09/28/16 07:15 09/28/16 07:15 Labs: Laboratory Last Values WBC 8.9 K/mm3 (4.5-11.0) 09/28/16 07:15 RBC 4.30 M/mm3 (3.65-5.03) 09/28/16 07:15 Hgb 12.5 gm/dl (11.8-15.2) 09/28/16 07:15 Hct 37.9 % (35.5-45.6) 09/28/16 07:15 MCV 88 fl (84-94) 09/28/16 07:15 MCH 29 pg (28-32) 09/28/16 07:15 MCHC 33 % (32-34) 09/28/16 07:15 RDW 15.6 % (13.2-15.2) H 09/28/16 07:15 Plt Count 326 K/mm3 (140-440) 09/28/16 07:15 Lymph % (Auto) 18.8 % (13.4-35.0) 09/28/16 07:15 [place] % (Auto) 11.4 % (0.0-7.3) H 09/28/16 07:15 Eos % (Auto) 4.2 % (0.0-4.3) 09/28/16 07:15 Baso % (Auto) 0.9 % (0.0-1.8) 09/28/16 07:15 Lymph # 1.7 K/mm3 (1.2-5.4) 09/28/16 07:15 [place] # 1.0 K/mm3 (0.0-0.8) H 09/28/16 07:15 Eos # 0.4 K/mm3 (0.0-0.4) 09/28/16 07:15 Baso # 0.1 K/mm3 (0.0-0.1) 09/28/16 07:15 Seg Neutrophils % 64.7 % (40.0-70.0) 09/28/16 07:15 Seg Neutrophils # 5.8 K/mm3 (1.8-7.7) 09/28/16 07:15 Sodium 142 mmol/L (137-145) 09/28/16 07:15 Potassium 3.3 mmol/L (3.6-5.0) L 09/28/16 07:15 Chloride 99.6 mmol/L (98-107) 09/28/16 07:15 Carbon Dioxide 30 mmol/L (22-30) 09/28/16 07:15 Anion Gap 16 mmol/L 09/28/16 07:15 BUN 22 mg/dL (9-20) H 09/28/16 07:15 Creatinine 1.3 mg/dL (0.8-1.5) 09/28/16 07:15 Estimated GFR > 60 ml/min 09/28/16 07:15 BUN/Creatinine Ratio 16.92 % 09/28/16 07:15 Glucose 107 mg/dL (75-100) H 09/28/16 07:15 Calcium 8.4 mg/dL (8.4-10.2) 09/28/16 07:15 Magnesium 2.30 mg/dL (1.7-2.3) 09/23/16 05:19 Troponin T < 0.010 ng/mL (0.00-0.029) 09/17/16 00:30 Triglycerides 50 mg/dL (2-149) 09/18/16 06:21 Cholesterol 148 mg/dL (50-199) 09/18/16 06:21 LDL Cholesterol Direct 103 mg/dL (50-130) 09/18/16 06:21 HDL Cholesterol 35 mg/dL (40-59) L 09/18/16 06:21 Cholesterol/HDL Ratio 4.22 % 09/18/16 06:21
[2016-09-28] MEDS ORDERED: K-DUR PO ONE (14:45)
[2016-09-28] MEDS: ZOCOR PO SCH (22:47)
[2016-09-28] MEDS: LOVENOX SUB-Q SCH (22:47)
[2016-09-28] MEDS: FLOMAX PO SCH (22:47)
[2016-09-29] MEDS: PERCOCET 5/325 PO PRN ×3 (07:38→18:53)
[2016-09-29] MEDS: BUMEX PO SCH ×3 (08:19→20:15)
[2016-09-29 08:53] LABS: Potassium 3.5 mmol/L (3.6-5.0)
[2016-09-29] MEDS ORDERED: K-DUR PO ONE (09:55)
[2016-09-29] MEDS: ASPIRIN PO SCH (11:27)
[2016-09-29] MEDS: PEPCID PO SCH ×2 (11:27→21:29)
[2016-09-29] MEDS: PROCARDIA XL PO SCH ×2 (11:28→21:33)
[2016-09-29] MEDS: CLEOCIN PO SCH ×4 (11:28→21:29)
[2016-09-29] MEDS: IMDUR PO SCH (11:28)
[2016-09-29] MEDS: COREG PO SCH ×2 (11:33→21:32)
[2016-09-29] MEDS: NORVASC PO SCH (11:33)
[2016-09-29] MEDS: K-DUR PO SCH (11:47)
--- NOTE | 2016-09-29 16:19 | Progress Note ---
Assessment and Plan Asses- s/p ORIF left distal radius, doing well plan- continue RoM exercises, will follow as outpt 2 wks after dc Subjective Date of service: 09/29/16 Interval history: doing well, occasion pain along incision otherwise ok Objective Vital signs: Vital Signs - 12hr 09/29/16 09/29/16 09/29/16 08:27 11:28 11:33 Temperature 98.1 F Pulse Rate 70 70 70 Respiratory 20 Rate Blood Pressure 128/59 138/74 138/74 O2 Sat by Pulse 95 Oximetry Narrative Exam: Left wrist - post op dressing intact, good active ROM at all digits, good cap refill - Labs CBC & BMP: 09/28/16 07:15 09/29/16 07:06 Labs: Abnormal lab results 09/29/16 Range/Units 07:06 Potassium 3.5 L (3.6-5.0) mmol/L
--- NOTE | 2016-09-29 19:01 | Progress Note ---
Assessment and Plan Assessment and plan: --Acute CVA ischemic/left hemiparesis Not a candidate for TPA, Aspirin and statin,, Unable to get MRI secondary to pacemaker, neurology evaluated the patient, echocardiogram EF 55-60%, physical therapy occupational therapy, Awaiting snf placement --Fracture left ulna and radius, status post ORIF , after evaluating the patient Follow-up in the office , 2 weeks after discharge --Hypokalemia; replenish per protocol and monitor levels --Malignant hypertension; Now ,Well-controlled --Dyslipidemia; continue statin --Acute on chronic diastolic congestive heart failure: EF 55-60% Well Compensated, continue current anti-failure medications --Morbid obesity with BMI of 46: Counseling done advised diet modification and exercise as tolerated and weight reduction when medically stable --Physical Therapy occupational therapy, acute versus subacute rehabilitation --DVT prophylaxis; with Lovenox --DC planning; Awaiting SNF placement Disposition; medically stable for discharge and transfer to SNF when set up History Interval history: Patient seen and evaluated medical records reviewed No new events reported by the nursing staff Alert awake oriented 3 not in acute distress Hospitalist Physical - Constitutional Vitals: Temp Pulse Resp BP Pulse Ox 97.9 F 70 20 123/61 95 09/29/16 16:20 09/29/16 16:20 09/29/16 16:20 09/29/16 16:20 09/29/16 16:20 General appearance: Present: no acute distress, well-nourished, obese (morbidly obese) - EENT Eyes: Present: PERRL, EOM intact - Neck Neck: Present: supple, normal ROM - Respiratory Respiratory effort: normal Respiratory: bilateral: diminished, negative: rales, rhonchi, wheezing - Cardiovascular Rhythm: regular Heart Sounds: Present: S1 & S2 - Extremities Extremities: no ischemia, No edema, abnormal (left hand in contrast) - Abdominal General gastrointestinal: soft, non-tender, non-distended, normal bowel sounds - Integumentary Integumentary: Present: clear, warm - Psychiatric Psychiatric: appropriate mood/affect, cooperative - Neurologic Neurologic: other (left-sided weakness) Results - Labs CBC & Chem 7: 09/28/16 07:15 09/29/16 07:06 Labs: Laboratory Last Values WBC 8.9 K/mm3 (4.5-11.0) 09/28/16 07:15 RBC 4.30 M/mm3 (3.65-5.03) 09/28/16 07:15 Hgb 12.5 gm/dl (11.8-15.2) 09/28/16 07:15 Hct 37.9 % (35.5-45.6) 09/28/16 07:15 MCV 88 fl (84-94) 09/28/16 07:15 MCH 29 pg (28-32) 09/28/16 07:15 MCHC 33 % (32-34) 09/28/16 07:15 RDW 15.6 % (13.2-15.2) H 09/28/16 07:15 Plt Count 326 K/mm3 (140-440) 09/28/16 07:15 Lymph % (Auto) 18.8 % (13.4-35.0) 09/28/16 07:15 [place] % (Auto) 11.4 % (0.0-7.3) H 09/28/16 07:15 Eos % (Auto) 4.2 % (0.0-4.3) 09/28/16 07:15 Baso % (Auto) 0.9 % (0.0-1.8) 09/28/16 07:15 Lymph # 1.7 K/mm3 (1.2-5.4) 09/28/16 07:15 [place] # 1.0 K/mm3 (0.0-0.8) H 09/28/16 07:15 Eos # 0.4 K/mm3 (0.0-0.4) 09/28/16 07:15 Baso # 0.1 K/mm3 (0.0-0.1) 09/28/16 07:15 Seg Neutrophils % 64.7 % (40.0-70.0) 09/28/16 07:15 Seg Neutrophils # 5.8 K/mm3 (1.8-7.7) 09/28/16 07:15 Sodium 142 mmol/L (137-145) 09/28/16 07:15 Potassium 3.5 mmol/L (3.6-5.0) L 09/29/16 07:06 Chloride 99.6 mmol/L (98-107) 09/28/16 07:15 Carbon Dioxide 30 mmol/L (22-30) 09/28/16 07:15 Anion Gap 16 mmol/L 09/28/16 07:15 BUN 22 mg/dL (9-20) H 09/28/16 07:15 Creatinine 1.3 mg/dL (0.8-1.5) 09/28/16 07:15 Estimated GFR > 60 ml/min 09/28/16 07:15 BUN/Creatinine Ratio 16.92 % 09/28/16 07:15 Glucose 107 mg/dL (75-100) H 09/28/16 07:15 Calcium 8.4 mg/dL (8.4-10.2) 09/28/16 07:15 Magnesium 2.00 mg/dL (1.7-2.3) 09/29/16 07:06 Troponin T < 0.010 ng/mL (0.00-0.029) 09/17/16 00:30 Triglycerides 50 mg/dL (2-149) 09/18/16 06:21 Cholesterol 148 mg/dL (50-199) 09/18/16 06:21 LDL Cholesterol Direct 103 mg/dL (50-130) 09/18/16 06:21 HDL Cholesterol 35 mg/dL (40-59) L 09/18/16 06:21 Cholesterol/HDL Ratio 4.22 % 09/18/16 06:21
[2016-09-29] MEDS: MORPHINE IV PRN (20:14)
[2016-09-29] MEDS: LOVENOX SUB-Q SCH (21:28)
[2016-09-29] MEDS: FLOMAX PO SCH (21:38)
[2016-09-29] MEDS: ZOCOR PO SCH (21:38)
[2016-09-30] MEDS: MORPHINE IV PRN ×2 (04:02→21:29)
[2016-09-30] MEDS: CLEOCIN PO SCH ×4 (09:25→21:31)
[2016-09-30] MEDS: COREG PO SCH ×2 (09:25→21:34)
[2016-09-30] MEDS: IMDUR PO SCH (09:26)
[2016-09-30] MEDS: PROCARDIA XL PO SCH ×2 (09:26→21:31)
[2016-09-30] MEDS: ASPIRIN PO SCH (09:27)
[2016-09-30] MEDS: PEPCID PO SCH ×2 (09:27→21:31)
[2016-09-30] MEDS: NORVASC PO SCH (09:27)
[2016-09-30] MEDS: K-DUR PO SCH (09:27)
[2016-09-30] MEDS: BUMEX PO SCH ×3 (09:29→20:17)
[2016-09-30] MEDS: PERCOCET 5/325 PO PRN (09:32)
--- NOTE | 2016-09-30 15:48 | Progress Note ---
Assessment and Plan Assessment and plan: --Acute CVA ischemic/left hemiparesis Not a candidate for TPA, Aspirin and statin,, Unable to get MRI secondary to pacemaker, neurology evaluated the patient, echocardiogram EF 55-60%, physical therapy occupational therapy, Awaiting long-term placement --Fracture left ulna and radius, status post ORIF , after evaluating the patient Follow-up in the office , 2 weeks after discharge --Hypokalemia; replenish per protocol and monitor levels --Malignant hypertension; Now ,Well-controlled --Dyslipidemia; continue statin --Acute on chronic diastolic congestive heart failure: EF 55-60% Well Compensated, continue current anti-failure medications --Morbid obesity with BMI of 46: Counseling done advised diet modification and exercise as tolerated and weight reduction when medically stable --Physical Therapy occupational therapy, acute versus subacute rehabilitation --DVT prophylaxis; with Lovenox --DC planning; Awaiting SNF placement Disposition; medically stable for discharge and transfer to SNF when set up History Interval history: Patient seen and examined. Follow up on current diagnosis/right wrist pains. Overnight uneventful. No cp, sob, n/v or severe headaches. Imaging, old records , testing, labs, nursing notes reviewed. Hospitalist Physical - Physical exam Narrative exam: GEN: WDWN, NAD, AWAKE, ALERT, ORIENTATED x 3 HEENT: NCAT, PERRL, EOMI, OP CLEAR NECK: SUPPLE, NO THYROMEGALY, NO JVD, NO LAD CVS: RRR, NORMAL S1S2 LUNGS/CHEST: CTA B, NORMAL CHEST EXPANSION B, GOOD AIR ENTRY B ABD: SOFT, NTND, GBS, NO REBOUND OR GUARDING EXT/SKIN: NO SIGNIFICANT EDEMA OR RASH MSK: LROM left wrist with splint in place NEURO: CN 2-12 GROSSLY INTACT, NO new FOCAL DEFICITS PSY: CALM - Constitutional Vitals: Temp Pulse Resp BP Pulse Ox 98.3 F 70 20 134/72 100 09/30/16 08:00 09/30/16 09:27 09/30/16 08:00 09/30/16 09:27 09/30/16 08:00 General appearance: Present: no acute distress, well-nourished, obese (morbidly obese) Results - Labs CBC & Chem 7: 09/28/16 07:15 09/29/16 07:06 Labs: Laboratory Last Values WBC 8.9 K/mm3 (4.5-11.0) 09/28/16 07:15 RBC 4.30 M/mm3 (3.65-5.03) 09/28/16 07:15 Hgb 12.5 gm/dl (11.8-15.2) 09/28/16 07:15 Hct 37.9 % (35.5-45.6) 09/28/16 07:15 MCV 88 fl (84-94) 09/28/16 07:15 MCH 29 pg (28-32) 09/28/16 07:15 MCHC 33 % (32-34) 09/28/16 07:15 RDW 15.6 % (13.2-15.2) H 09/28/16 07:15 Plt Count 326 K/mm3 (140-440) 09/28/16 07:15 Lymph % (Auto) 18.8 % (13.4-35.0) 09/28/16 07:15 [place] % (Auto) 11.4 % (0.0-7.3) H 09/28/16 07:15 Eos % (Auto) 4.2 % (0.0-4.3) 09/28/16 07:15 Baso % (Auto) 0.9 % (0.0-1.8) 09/28/16 07:15 Lymph # 1.7 K/mm3 (1.2-5.4) 09/28/16 07:15 [place] # 1.0 K/mm3 (0.0-0.8) H 09/28/16 07:15 Eos # 0.4 K/mm3 (0.0-0.4) 09/28/16 07:15 Baso # 0.1 K/mm3 (0.0-0.1) 09/28/16 07:15 Seg Neutrophils % 64.7 % (40.0-70.0) 09/28/16 07:15 Seg Neutrophils # 5.8 K/mm3 (1.8-7.7) 09/28/16 07:15 Sodium 142 mmol/L (137-145) 09/28/16 07:15 Potassium 3.5 mmol/L (3.6-5.0) L 09/29/16 07:06 Chloride 99.6 mmol/L (98-107) 09/28/16 07:15 Carbon Dioxide 30 mmol/L (22-30) 09/28/16 07:15 Anion Gap 16 mmol/L 09/28/16 07:15 BUN 22 mg/dL (9-20) H 09/28/16 07:15 Creatinine 1.3 mg/dL (0.8-1.5) 09/28/16 07:15 Estimated GFR > 60 ml/min 09/28/16 07:15 BUN/Creatinine Ratio 16.92 % 09/28/16 07:15 Glucose 107 mg/dL (75-100) H 09/28/16 07:15 Calcium 8.4 mg/dL (8.4-10.2) 09/28/16 07:15 Magnesium 2.00 mg/dL (1.7-2.3) 09/29/16 07:06 Troponin T < 0.010 ng/mL (0.00-0.029) 09/17/16 00:30 Triglycerides 50 mg/dL (2-149) 09/18/16 06:21 Cholesterol 148 mg/dL (50-199) 09/18/16 06:21 LDL Cholesterol Direct 103 mg/dL (50-130) 09/18/16 06:21 HDL Cholesterol 35 mg/dL (40-59) L 09/18/16 06:21 Cholesterol/HDL Ratio 4.22 % 09/18/16 06:21
[2016-09-30] MEDS: LOVENOX SUB-Q SCH (21:29)
[2016-09-30] MEDS: ZOCOR PO SCH (21:31)
[2016-09-30] MEDS: FLOMAX PO SCH (21:31)
[2016-10-01] MEDS: BUMEX PO SCH ×3 (08:26→20:12)
[2016-10-01] MEDS: PEPCID PO SCH ×2 (11:11→21:09)
[2016-10-01] MEDS: CLEOCIN PO SCH ×4 (11:11→21:09)
[2016-10-01] MEDS: ASPIRIN PO SCH (11:11)
[2016-10-01] MEDS: IMDUR PO SCH (11:11)
[2016-10-01] MEDS: K-DUR PO SCH (11:11)
[2016-10-01] MEDS: PROCARDIA XL PO SCH ×2 (11:12→21:09)
[2016-10-01] MEDS: COREG PO SCH ×2 (11:12→21:10)
[2016-10-01] MEDS: NORVASC PO SCH (11:12)
--- NOTE | 2016-10-01 14:13 | Discharge Summary ---
Providers - Providers Date of Admission: 09/17/16 01:05 Date of discharge: 10/01/16 Attending physician: AISHA RED 09/17/16 10:12 Physical Therapy Evaluation and Treat [CONS] Urgent Comment: Reason For Exam: pt s/p fall, very weak and unsteady gait 09/17/16 12:47 Occupational Therapy Evaluate and Treat [CONS] Routine Comment: Reason For Exam: Neuro deficits Physical Therapy Evaluation and Treat [CONS] Routine Comment: Reason For Exam: Neuro deficits Speech Therapy Evaluation and Treat [CONS] Routine Reason For Exam: swallow eval 09/18/16 07:13 Consult to Wound/ET Nurse [CONS] Routine Reason For Exam: wound eval 09/18/16 16:24 Consult to Physician [CONS] Routine Consulting Provider: BRANDYN CHAMPION Reason For Exam: acute CVA Place consult to:: Notified:: Phone number called:: [phone] 09/22/16 20:09 Consult to Physician [CONS] Routine Consulting Provider: ROBERTA SALINAS Reason For Exam: fracture distal radius/lt wrist Place consult to:: Dr. Salinas Notified:: Sean CARDENAS Phone number called:: Was contact made?: Yes If yes, spoke with:: Pamela-Office Time called:: 09:36 09/25/16 12:57 Occupational Therapy Evaluate and Treat [CONS] Stat Comment: cockup wrist splint left arm Reason For Exam: fracture Primary care physician: DISTRIBUTION MANAGER Hospitalization Condition: Stable Hospital course: --Acute CVA ischemic/left hemiparesis Not a candidate for TPA, Aspirin and statin,, Unable to get MRI secondary to pacemaker, neurology evaluated the patient, echocardiogram EF 55-60%, physical therapy occupational therapy, Awaiting fpc placement --Fracture left ulna and radius, status post ORIF , Follow-up in the office , 2 weeks after discharge --Hypokalemia; replenish per protocol and monitor levels --Malignant hypertension; Now ,Well-controlled --Dyslipidemia; continue statin --Acute on chronic diastolic congestive heart failure: EF 55-60% Well Compensated, continue current anti-failure medications --Morbid obesity with BMI of 46: Counseling done advised diet modification and exercise as tolerated and weight reduction when medically stable --Physical Therapy occupational therapy, acute versus subacute rehabilitation --DVT prophylaxis; with Lovenox --DC planning; Awaiting SNF placement Disposition; medically stable for discharge and transfer to SNF when set up Disposition: DC-30 STILL A PATIENT Time spent for discharge: 35 minutes Core Measure Documentation - Palliative Care Palliative Care/ Comfort Measures: Not Applicable - Core Measures Any of the following diagnoses?: none - VTE Discharge Requirements Deep Vein Thrombosis/Pulmonary Embolism Present on Admission: No Has pt received <5 days of overlap therapy or INR<2.0: No Anticoagulant overlap therapy prescribed at discharge: No Contraindication No Overlap Therapy order at DC: Not Indicated Exam - Physical Exam Narrative exam: GEN: WDWN, NAD, AWAKE, ALERT, ORIENTATED x 3 HEENT: NCAT, PERRL, EOMI, OP CLEAR NECK: SUPPLE, NO THYROMEGALY, NO JVD, NO LAD CVS: RRR, NORMAL S1S2 LUNGS/CHEST: CTA B, NORMAL CHEST EXPANSION B, GOOD AIR ENTRY B ABD: SOFT, NTND, GBS, NO REBOUND OR GUARDING EXT/SKIN: NO SIGNIFICANT EDEMA OR RASH MSK: LROM left wrist with splint in place NEURO: CN 2-12 GROSSLY INTACT, NO new FOCAL DEFICITS PSY: CALM - Constitutional Vitals: Temp Pulse Resp BP Pulse Ox 98.4 F 70 20 121/63 99 10/01/16 07:10 10/01/16 11:12 10/01/16 07:10 10/01/16 11:12 10/01/16 07:10 Plan Activity: other (no strenous activites until cleared by PCP. ) Diet: low salt, diabetic Wound: per your surgeon's advice Special Instructions: record daily BP diary, record blood sugar diary (3 times a day with meals and at bedtime), physical therapy, occupational therapy Follow up with: PRIMARY CARE, [Primary Care Provider] - 3-5 Days BRANDYN CHAMPION MD [Staff Physician] - 14 Days ROBERTA SALINAS MD [Staff Physician] - 10 Days Prescriptions: RX: oxyCODONE /ACETAMINOPHEN [Percocet 5/325 mg] 1 tab PO Q4H PRN #30 tablet PRN Reason: Pain , Severe (7-10)
[2016-10-01] MEDS: PERCOCET 5/325 PO PRN (14:19)
[2016-10-01] MEDS: LOVENOX SUB-Q SCH (21:09)
[2016-10-01] MEDS: ZOCOR PO SCH (21:09)
[2016-10-01 21:12] VITALS: BP 142/80
== END 2016-10-01 21:10 | DRG 981 ==
LOC: ED 18:34 → 4A 09-17 01:05 → 3A 09-23 22:42
PROVIDERS: ADMIT Internal Medicine; ATTEND Internal Medicine
PROC: 0PSJ04Z Reposition Left Radius with Internal Fixation Device, Open Approach (ICD-10-PCS; principal; 2016-09-26)
DX: I63.9 Cerebral infarction, unspecified (principal); I50.33 Acute on chronic diastolic (congestive) heart failure; S52.502A Unspecified fracture of the lower end of left radius, initial encounter for closed fracture; G81.94 Hemiplegia, unspecified affecting left nondominant side; Z68.42 Body mass index [BMI] 45.0-49.9, adult; L03.116 Cellulitis of left lower limb; L97.929 Non-pressure chronic ulcer of unspecified part of left lower leg with unspecified severity; S52.602A Unspecified fracture of lower end of left ulna, initial encounter for closed fracture; E66.01 Morbid (severe) obesity due to excess calories; E87.6 Hypokalemia; E78.5 Hyperlipidemia, unspecified; I11.0 Hypertensive heart disease with heart failure; G47.30 Sleep apnea, unspecified; W18.39XA Other fall on same level, initial encounter; Z71.3 Dietary counseling and surveillance; Z95.0 Presence of cardiac pacemaker; Z82.49 Family history of ischemic heart disease and other diseases of the circulatory system; Z79.82 Long term (current) use of aspirin; Z79.899 Other long term (current) drug therapy; Z87.891 Personal history of nicotine dependence; Z87.01 Personal history of pneumonia (recurrent); Y93.89 Activity, other specified; Y92.098 Other place in other non-institutional residence as the place of occurrence of the external cause; Y99.8 Other external cause status
CPT/HCPCS: 36415; 64450; 70450; 71010; 80048; 80061; 83735; 84132; 84484; 85025; 87040; 87086; 93005; 93010; 93306; 93880; 94760; 96374; 96375; C1713; G8978-GP; G8979-GP; G8987-GO; G8988-GO; G8989-GO; G8996-GN; G8997-GN; J0360; J0735; J1100; J1650; J1956; J2250; J2270; J2405; J2704; J3010; J7120; Q9967

== ENCOUNTER 2016-10-20 11:10 | Emergency (ER) | payer MEDICARE ==
--- NOTE | 2016-10-20 11:30 | Emergency Department Report ---
Chief Complaint: Recheck/Abnormal Lab/Rx Stated Complaint: HIGH BLOOD PRESSURE Time Seen by Provider: 10/20/16 11:22 - HPI History of Present Illness: PT brought in by his daughter for high blood pressure. PT States he checked his bp at home prior to taking his daily medication. PT's daughter states when pt was discharged from the rehab, his bp medication was changed. - ROS Review of Systems: - dizziness -nausea - chest pain + L hand pain - Exam Physical Exam: PT is alert and appropriate LUE in velcro splint MSE screening note: Focused history and physical exam performed. Due to findings the following was ordered: ct head ED Disposition for MSE Condition: Stable
--- NOTE | 2016-10-20 12:56 | Cat Scan Report ---
CT head without contrast: Headache, hypertension, recent CVA. Axial images demonstrate a focal area of decreased attenuation lateral to the posterior right occipital horn. No hemorrhage and no mass effect. Bilateral periventricular decreased attenuation. Unremarkable ventricular location, size, and contour. The visualized bones and paranasal sinuses are unremarkable. No prior study for comparison. Impression: Right hemispheric stroke of indeterminate age. Senescent changes.
--- NOTE | 2016-10-20 14:25 | Emergency Department Report ---
ED General Adult HPI - General Chief complaint: Headache Stated complaint: HIGH BLOOD PRESSURE Time Seen by Provider: 10/20/16 11:22 Source: patient Mode of arrival: Wheelchair Limitations: Physical Limitation - History of Present Illness Initial comments: Patient states that at about 9:00 he took his blood pressure and it was elevated. The younger lady that is with him believes that he forgot to take his blood pressure medicine last night. He has had multiple readings here and they have been normotensive. Patient is not complaining of a headache now. He may have answered to the affirmative earlier. Thereby he went for a CT scan by protocol. He's been asymptomatic here for quite some time. I rechecked his blood pressure myself and found to be normotensive. He did take his medicine after his elevated blood pressure which may have been over 200 systolic. He is vague and very poor inspiration. Patient was treated here in September for a stroke resulting in left hemiparesis. He has had a surgical procedure he states approximately 2 weeks ago due to an injury caused by a fall onto his left hand. He doesn't complain of any swelling of his arm or hand acutely. There is some hand edema however. -: hour(s) Location: head (mild and somewhat questionable) Improves with: none Worsens with: none Associated Symptoms: denies other symptoms - Related Data Previous Rx's Medication Instructions Recorded Last Taken Type Ondansetron [Zofran TAB] 4 mg PO Q8HR PRN #14 tablet 12/09/15 Unknown Rx Acetaminophen [Acetaminophen TAB] 325 mg PO Q6H PRN #30 tablet 10/01/16 Unknown Rx Aspirin [Aspirin TAB] 325 mg PO QDAY #30 tablet 10/01/16 Unknown Rx Bumetanide [Bumex 1 mg tab] 1 mg PO TID #30 tablet 10/01/16 Unknown Rx Carvedilol [Coreg] 25 mg PO BID #60 10/01/16 12/08/15 Rx Famotidine [Pepcid] 10 mg PO BID #30 tablet 10/01/16 Unknown Rx ISOSORBIDE MONOnitrate [Imdur ER] 60 mg PO QDAY #30 10/01/16 12/08/15 Rx NIFEdipine XL [Procardia Xl] 30 mg PO Q12HR #60 tablet 10/01/16 Unknown Rx Potassium Chloride [K-Dur] 20 meq PO QDAY #30 tablet 10/01/16 Unknown Rx Simvastatin [Zocor TAB] 20 mg PO QHS #30 tablet 10/01/16 Unknown Rx Tamsulosin [Flomax] 0.4 mg PO QDAY #30 10/01/16 12/08/15 Rx amLODIPine [Norvasc] 5 mg PO DAILY tablet 10/01/16 Unknown Rx oxyCODONE /ACETAMINOPHEN [Percocet 1 tab PO Q4H PRN #30 tablet 10/01/16 Unknown Rx 5/325 mg] Allergies Allergy/AdvReac Type Severity Reaction Status Date / Time No Known Allergies Allergy Verified 10/20/16 11:15 ED Review of Systems ROS: Stated complaint: HIGH BLOOD PRESSURE Other details as noted in HPI Constitutional: denies: chills, fever Eyes: denies: eye pain, eye discharge, vision change ENT: denies: ear pain, throat pain Respiratory: denies: cough, shortness of breath, wheezing Cardiovascular: denies: chest pain, palpitations Endocrine: no symptoms reported Gastrointestinal: denies: abdominal pain, nausea, diarrhea Genitourinary: denies: urgency, dysuria Musculoskeletal: denies: back pain, joint swelling, arthralgia Skin: denies: rash, lesions Neurological: headache. denies: weakness, paresthesias Psychiatric: denies: anxiety, depression Hematological/Lymphatic: denies: easy bleeding, easy bruising ED Past Medical Hx - Past Medical History Hx Hypertension: Yes Hx CVA: Yes Hx Heart Attack/AMI: No Hx Congestive Heart Failure: Yes Hx Diabetes: No Hx Deep Vein Thrombosis: No Hx Asthma: No Hx COPD: No - Surgical History Hx Coronary Stent: No Hx Pacemaker: Yes Hx Internal Defibrillator: Yes (PT DENIES) Additional Surgical History: LEFT WRIST - Social History Smoking Status: Former Smoker Substance Use Type: None - Medications Home Medications: Home Medications Medication Instructions Recorded Confirmed Last Taken Type Ondansetron [Zofran TAB] 4 mg PO Q8HR PRN #14 tablet 12/09/15 09/16/16 Unknown Rx Acetaminophen [Acetaminophen TAB] 325 mg PO Q6H PRN #30 tablet 10/01/16 Unknown Rx Aspirin [Aspirin TAB] 325 mg PO QDAY #30 tablet 10/01/16 Unknown Rx Bumetanide [Bumex 1 mg tab] 1 mg PO TID #30 tablet 10/01/16 Unknown Rx Carvedilol [Coreg] 25 mg PO BID #60 10/01/16 09/16/16 12/08/15 Rx Famotidine [Pepcid] 10 mg PO BID #30 tablet 10/01/16 Unknown Rx ISOSORBIDE MONOnitrate [Imdur ER] 60 mg PO QDAY #30 10/01/16 09/16/16 12/08/15 Rx NIFEdipine XL [Procardia Xl] 30 mg PO Q12HR #60 tablet 10/01/16 Unknown Rx Potassium Chloride [K-Dur] 20 meq PO QDAY #30 tablet 10/01/16 Unknown Rx Simvastatin [Zocor TAB] 20 mg PO QHS #30 tablet 10/01/16 Unknown Rx Tamsulosin [Flomax] 0.4 mg PO QDAY #30 10/01/16 09/16/16 12/08/15 Rx amLODIPine [Norvasc] 5 mg PO DAILY tablet 10/01/16 Unknown Rx oxyCODONE /ACETAMINOPHEN [Percocet 1 tab PO Q4H PRN #30 tablet 10/01/16 Unknown Rx 5/325 mg] ED Physical Exam - General Limitations: Physical Limitation General appearance: alert, in no apparent distress - Head Head exam: Present: atraumatic, normocephalic - Eye Eye exam: Present: normal appearance. Absent: scleral icterus - ENT ENT exam: Present: mucous membranes moist - Neck Neck exam: Present: normal inspection - Respiratory Respiratory exam: Present: normal lung sounds bilaterally. Absent: respiratory distress - Cardiovascular Cardiovascular Exam: Present: regular rate, normal rhythm. Absent: systolic murmur, diastolic murmur, rubs, gallop - GI/Abdominal GI/Abdominal exam: Present: soft, normal bowel sounds. Absent: distended, tenderness, guarding, rebound, rigid - Rectal Rectal exam: Present: deferred - Extremities Exam Extremities exam: Present: other (apparently lymphedema both legs. Patient states is normal for him. 1+ hand edema.) - Back Exam Back exam: Present: normal inspection - Neurological Exam Neurological exam: Present: alert, oriented X3, motor sensory deficit (left hemiparesis), other (no acute focal deficit) - Psychiatric Psychiatric exam: Present: normal affect, normal mood - Skin Skin exam: Present: warm, dry, intact, normal color. Absent: rash - Other Other exam information: Velcro Hand splint postoperative ED Course Vital Signs 10/20/16 10/20/16 10/20/16 11:18 11:49 14:09 Temperature 97.3 F L Pulse Rate 70 70 70 Respiratory 19 20 18 Rate Blood Pressure 134/60 Blood Pressure 136/70 148/70 [Left] O2 Sat by Pulse 97 95 99 Oximetry ED Medical Decision Making - Lab Data Result diagrams: 10/20/16 14:40 10/20/16 14:40 Laboratory Results - last 24 hr 10/20/16 10/20/16 10/20/16 14:40 14:40 14:40 WBC 8.0 RBC 4.55 Hgb 13.5 Hct 40.4 MCV 89 MCH 30 MCHC 33 RDW 14.9 Plt Count 197 Lymph % (Auto) 17.7 [place] % (Auto) 11.3 H Eos % (Auto) 5.6 H Baso % (Auto) 1.1 Lymph # 1.4 [place] # 0.9 H Eos # 0.5 H Baso # 0.1 Seg Neutrophils % 64.3 Seg Neutrophils # 5.1 PT 14.5 INR 1.07 APTT 29.8 Sodium 141 Potassium 4.0 Chloride 102.6 Carbon Dioxide 27 Anion Gap 15 BUN 17 Creatinine 1.1 Estimated GFR > 60 BUN/Creatinine Ratio 15.45 Glucose 83 Calcium 9.0 Total Bilirubin 0.50 AST 23 ALT 26 Alkaline Phosphatase 97 Total Protein 7.6 Albumin 3.4 L Albumin/Globulin Ratio 0.8 Critical care attestation.: If time is entered above; I have spent that time in minutes in the direct care of this critically ill patient, excluding procedure time. ED Disposition Clinical Impression: Hypertension Qualifiers: Hypertension type: essential hypertension Qualified Code(s): I10 - Essential ( primary) hypertension Headache Qualifiers: Headache type: unspecified Headache chronicity pattern: unspecified pattern Intractability: not intractable Qualified Code(s): R51 - Headache Disposition: DC-01 TO HOME OR SELFCARE Is pt being admited?: No Does the pt Need Aspirin: No Condition: Stable Instructions: Hypertension (ED) Referrals: PRIMARY CARE, [Primary Care Provider] - 2-3 Days Time of Disposition: 16:29
[2016-10-20 15:10] LABS: Basophils % (Auto) 1.1 % (0.0-1.8); Eosinophils % (Auto) 5.6 % (0.0-4.3); Hematocrit 40.4 % (35.5-45.6); Hemoglobin 13.5 gm/dl (11.8-15.2); Mean Corpuscular HGB Conc 33 % (32-34); Mean Corpuscular Hemoglobin 30 pg (28-32); Mean Corpuscular Volume 89 fl (84-94); Platelet Count 197 K/mm3 (140-440); Red Blood Count 4.55 M/mm3 (3.65-5.03); Red Cell Distribution Width 14.9 % (13.2-15.2)
[2016-10-20 15:20] LABS: INR 1.07 (0.87-1.13)
[2016-10-20 15:21] LABS: Partial Thromboplastin Time 29.8 Sec. (24.2-36.6)
[2016-10-20 15:28] LABS: Alanine Aminotransferase 26 units/L (7-56); Albumin 3.4 g/dL (3.9-5); Albumin/Globulin Ratio 0.8 %; Alkaline Phosphatase 97 units/L (35-129); Anion Gap 15 mmol/L; BUN/Creatinine Ratio 15.45; Blood Urea Nitrogen 17 mg/dL (9-20); Carbon Dioxide 27 mmol/L (22-30); Chloride 102.6 mmol/L (98-107); Glucose 83 mg/dL (75-100); Sodium 141 mmol/L (137-145); Total Protein 7.6 g/dL (6.3-8.2)
[2016-10-20 17:10] VITALS: BP 138/75
== END 2016-10-20 17:11 | disposition home or self-care (01) ==
LOC: ED 11:10
DX: I10 Essential (primary) hypertension (principal); R51 Headache; I50.9 Heart failure, unspecified; Z95.0 Presence of cardiac pacemaker; Z87.891 Personal history of nicotine dependence; Z79.82 Long term (current) use of aspirin; Z86.73 Personal history of transient ischemic attack (TIA), and cerebral infarction without residual deficits
CPT/HCPCS: 36415; 70450; 80053; 85025; 85610; 85730; 99284